=== PATIENT | female | born 1945 | race Caucasian/White ===

== ENCOUNTER → 2016-10-06 | Outpatient (CLI) | payer MEDICARE, OTHER ==
--- NOTE | 2016-10-07 13:41 | MM ---
Reason for exam: screening (asymptomatic). Last mammogram was performed 1 year and 1 month ago. History: Patient is postmenopausal and is nulliparous. Family history of breast cancer in cousin. Took estrogen for 5 years beginning at age 49. Physical Findings: A clinical breast exam by your physician is recommended on an annual basis and results should be correlated with mammographic findings. MG 3D Screening Mammo W/Cad Bilateral CC and MLO view(s) were taken. Prior study comparison: September 20, 2015, bilateral MG 3d screening mammo w/cad. October 11, 2013, bilateral digital screening mammo w/CAD. August 04, 2012, bilateral digital screening mammo w/CAD. There are scattered fibroglandular densities. No significant changes when compared with prior studies. ASSESSMENT: Negative, BI-RAD 1 RECOMMENDATION: Routine screening mammogram of both breasts in 1 year.
== END | disposition home or self-care (01) ==
LOC: RADMAMWWP 09:05
PROVIDERS: ATTEND Internal Medicine
DX: Z12.31 Encounter for screening mammogram for malignant neoplasm of breast (principal)
CPT/HCPCS: 77063; G0202

== ENCOUNTER 2017-02-19 17:51 | Inpatient (IN) | payer MEDICARE, OTHER ==
[2017-02-19 18:26] LABS: Glucose,Whole Blood 119 mg/dL (75-99)
[2017-02-19] MEDS ORDERED: ACETAMINOPHEN TAB 325 MG TAB PO PRN (18:28)
[2017-02-19] MEDS ORDERED: ONDANSETRON 4 MG/2 ML VIAL IVP PRN (18:28)
[2017-02-19] MEDS ORDERED: HEPARIN SODIUM,PORCINE 5,000 UNIT/ML 1 ML VIAL IV PRN (18:47)
[2017-02-19] MEDS ORDERED: HEPARIN SODIUM,PORCINE 5,000 UNIT/ML 1 ML VIAL IV ONE (18:47)
[2017-02-19] MEDS ORDERED: HEPARIN SODIUM,PORCINE/D5W PMX 25,000 UNIT in DEXTROSE/WATER 1 500ML.BAG IV SCH (19:00)
[2017-02-19 20:46] LABS: Glucose,Whole Blood 136 mg/dL (75-99)
[2017-02-19] MEDS: INSULIN LISPRO (humaLOG) 300 UNIT/3 ML VIAL SQ SCH (20:57)
[2017-02-19 22:02] VITALS: BMI 32.7
[2017-02-20 06:05] LABS: Glucose,Whole Blood 119 mg/dL (75-99)
[2017-02-20] MEDS: INSULIN LISPRO (humaLOG) 300 UNIT/3 ML VIAL SQ SCH ×4 (06:36→22:45)
[2017-02-20] MEDS: ATORVASTATIN 20 MG TAB PO SCH (06:39)
[2017-02-20] MEDS: METOPROLOL SUCCINATE (ER) 100 MG TAB.ER.24H PO SCH (06:39)
[2017-02-20] MEDS: POTASSIUM CHLORIDE ER 20 MEQ TAB.ER PO SCH (06:39)
[2017-02-20] MEDS: amLODIPine 5 MG TAB PO SCH (06:39)
[2017-02-20] MEDS ORDERED: NITROGLYCERIN SL TABS 0.4 MG TAB SUBLINGUAL PRN (07:39)
[2017-02-20] MEDS ORDERED: ATORVASTATIN 80 MG TAB PO STA (07:39)
[2017-02-20] MEDS ORDERED: ALPRAZolam 0.5 MG TAB PO PRN (07:39)
[2017-02-20] MEDS ORDERED: ALPRAZolam 0.25 MG TAB PO PRN (07:39)
[2017-02-20] MEDS ORDERED: SODIUM CHLORIDE 0.9% 1,000 ML in EMPTY BAG 1 BAG IV ONE (07:39)
[2017-02-20] MEDS ORDERED: ASPIRIN 325 MG TAB PO STA (07:39)
--- NOTE | 2017-02-20 08:06 | P.HPIM ---
History of Present Illness Chief complaint: The patient is a 71-year-old female who presented to [facility] emergency center with shortness of breath and pain radiating up in her neck 2 days ago. History of present illness: The patient was found in the emergency room at [facility] to have supraventricular tachycardia with a rate of about 180 bpm. She was converted there with adenosin and was followed with serial enzymes and found to have subsequently elevated troponin values. She did have some posterior neck discomfort that was different than her usual cervical osteoarthritic pain which cleared with controlling her heart rate. She was seen there by cardiology and transferred here because of problems with their catheterization lab at the other hospital. Plans are for catheterization today here later this morning. Past medical history: Type 2 diabetes Hyperlipidemia Hypertension Degenerative joint disease diffuse Chronic kidney disease stage III Obesity Previous surgeries include bilateral carpal tunnel and bilateral shoulder surgeries with the last being approximately 2010. She has no history of myocardial infarction or stroke in the past. Medications: Furosemide 40 mg daily Metoprolol 100 mg daily Patient previously was on metformin 500 mg twice a day which has been on hold Losartan 50 mg daily although patient was not taking approximately 3 weeks prior to admission because she ran out Lovastatin 40 mg 2 tablets at bedtime Potassium chloride 20 mEq daily Amlodipine 5 mg extended release daily Ibuprofen 800 mg twice a day as needed for degenerative disc disease Ranitidine 150 mg twice a day Multiple vitamin daily. ALLERGIES: Zestril, hydrochlorothiazide, Xylocaine, Prevacid. Review of systems: Patient denies any visual problems or headaches. Presently no nausea or vomiting. No chest pain. Some shortness of breath with exertion. No unusual cough or fevers. No abdominal pain. No urinary or bowel symptoms. No hematochezia. No unusual leg edema. Family history is positive for coronary artery disease and diabetes. Social history Patient has no history of smoking. She is retired. There is no history of excessive alcohol usage. She lives locally in the area independently. Physical examination: Patient is easily aroused in bed. Alert and oriented. Vital signs temperature 97.9 with a pulse from 50 to up to 62 in sinus and regular. Respirations are 18 with blood pressure 147/71 and she is 95% saturated on room air. Head and neck exam unremarkable. Extraocular movements intact. Pupils equal and reactive. Lungs are clear to auscultation. Heart tones are regular without murmurs or rubs. Breast and pelvic exam deferred. Abdomen is soft and nontender. Extremities reveal no edema. She is alert and oriented. Cranial nerves intact. No focal weakness. Laboratory values: Blood sugar is 119. PTT is 32.9. Once again troponin values did increase from a normal baseline at 2 values greater than 1 at [facility]. EKGs show normal sinus bradycardia. No definite acute ischemic changes. Chest x-ray at the other hospital does not show any acute changes. Impressions: 1. Non-ST segment myocardial infarction likely in terms of the rapid heart rate , neck discomfort and elevated enzymes. 2. Episode of supraventricular tachycardia with heart rates up to 180 presentation. 3. Comorbidities and risk factors as stated above in the past medical history including type 2 diabetes, hypertension, hyperlipidemia 4. Other past medical problems including diffuse generative joint disease, chronic kidney disease, and obesity. Plans: Patient apparently scheduled for heart catheterization today per cardiology and further recommendations regarding treatment and workup pending those results as discussed with patient. Patient understands reason for the testing and risks versus benefits involved. Past Medical History Past Medical History: Diabetes Mellitus, GERD/Reflux, Hyperlipidemia, Hypertension, Musculoskeletal Disorder Additional Past Medical History / Comment(s): carpal tunnel, diverticulosis, chronic back pain, History of Any Multi-Drug Resistant Organisms: None Reported Past Surgical History: Orthopedic Surgery Additional Past Surgical History / Comment(s): WALKER carpal tunnel surgery, WALKER shoulder replacements, L rotator cuff repair, colonoscopy 2006 with polyp removal Past Anesthesia/Blood Transfusion Reactions: No Reported Reaction Past Psychological History: No Psychological Hx Reported Smoking Status: Never smoker - Past Family History Mother Family Medical History: Cancer Additional Family Medical History / Comment(s): Cervical Brother(s) Family Medical History: Cancer Additional Family Medical History / Comment(s): Colon Medications and Allergies Home Medications Medication Instructions Recorded Confirmed Type Felodipine ER [Plendil] 5 mg PO DAILY 02/19/17 02/19/17 History Furosemide [Lasix] 40 mg PO DAILY 02/19/17 02/19/17 History Ibuprofen [Motrin] 800 mg PO BID 02/19/17 02/19/17 History Lovastatin [Mevacor] 80 mg PO HS 02/19/17 02/19/17 History Metoprolol Tartrate [Lopressor] 100 mg PO HS 02/19/17 02/19/17 History Potassium Chloride [Klor-Con 20] 20 meq PO DAILY 02/19/17 02/19/17 History metFORMIN HCL [Glucophage] 500 mg PO BID 02/19/17 02/19/17 History Allergies Allergy/AdvReac Type Severity Reaction Status Date / Time hydrochlorothiazide Allergy Rash/Hives Verified 02/19/17 18:23 lidocaine Allergy Unknown Verified 02/19/17 18:23 Physical Exam Vitals: Vital Signs Temp Pulse Resp BP Pulse Ox 02/20/17 07:30 97.9 F 52 L 17 147/71 95 02/20/17 07:29 62 18 02/20/17 04:00 98.3 F 62 18 142/67 93 L 02/20/17 00:00 56 L 16 118/58 93 L 02/19/17 22:01 98.5 F 63 18 136/66 92 L 02/19/17 20:00 98.5 F 63 18 136/66 92 L 02/19/17 18:19 98.6 F 65 17 177/77 95 02/19/17 18:15 65 18 Intake and Output 02/19/17 02/20/17 02/20/17 22:59 06:59 14:59 Intake Total 233.124 Balance 233.124 Intake: IV 102 Heparin Sodium,Porcine/ 102 D5w Pmx 25,000 unit In Dextrose/Water 1 500ml. bag @ 12 UNITS/KG/HR 17. 64 mls/hr IV .Q24H [facility] Rx #:[id number] Intake, IV Titration 131.124 Amount Heparin Sodium,Porcine/ 131.124 D5w Pmx 25,000 unit In Dextrose/Water 1 500ml. bag @ 12 UNITS/KG/HR 17. 64 mls/hr IV .Q24H [facility] Rx #:[id number] Other: Voiding Method Toilet Toilet # Voids 2 Weight 73.5 kg 72.8 kg Results Labs: Abnormal Lab Results - Last 24 Hours (Table) 02/19/17 02/19/17 02/20/17 Range/Units 18:24 20:43 01:29 APTT 32.9 H (22.0-30.0) sec POC Glucose (mg/dL) 119 H 136 H (75-99) mg/dL 02/20/17 Range/Units 06:03 APTT (22.0-30.0) sec POC Glucose (mg/dL) 119 H (75-99) mg/dL Thrombosis Risk Factor Assmnt - Choose All That Apply Any of the Below Risk Factors Present?: No Other Risk Factors: Yes Each Risk Factor Represents 2 Points: Age 61-74 years Thrombosis Risk Factor Assessment Total Risk Factor Score: 2 Thrombosis Risk Factor Assessment Level: Low Risk
[2017-02-20] MEDS ORDERED: SODIUM CHLORIDE 0.9% 500 ML IV ONE (08:20)
[2017-02-20] MEDS ORDERED: MIDAZOLAM 2 MG/2 ML VIAL IV ONE (08:22)
[2017-02-20] MEDS ORDERED: diphenhydrAMINE 50 MG/ML 1 ML VIAL IVP ONE (08:22)
[2017-02-20] MEDS ORDERED: CHLOROPROCAINE 3% 30 MG/ML 20 ML VIAL SQ ONE (08:25)
[2017-02-20] MEDS ORDERED: LIDOCAINE 2% INJ 20 MG/ML SQ ONE (08:25)
[2017-02-20] MEDS ORDERED: CHLOROPROCAINE 3% 30 MG/ML 20 ML VIAL MISCELLANE ONE (08:30)
[2017-02-20] MEDS ORDERED: amLODIPine 5 MG TAB PO ONE (08:44)
[2017-02-20] MEDS ORDERED: NITROGLYCERIN OINT 1 INCH/GM PACKET TOPICAL ONE (08:45)
[2017-02-20] MEDS ORDERED: RX INFO: IV CONTRAST WAS GIVEN 1 EACH MISC MISCELLANE PRN (08:54)
[2017-02-20] MEDS ORDERED: IOHEXOL 350 MG/ML 125ML BOTTLE INJ ONE (08:57)
[2017-02-20] MEDS ORDERED: CLOPIDOGREL 75 MG TAB PO SCH (09:00)
[2017-02-20] MEDS ORDERED: hydrALAZINE HCL 20 MG/ML 1 ML VIAL IV ONE (09:04)
--- NOTE | 2017-02-20 09:23 | CC ---
CARDIAC CATHETERIZATION NOTE INDICATIONS: Non-ST segment elevation AR. This is a 71-year-old lady who was admitted to [facility] with SVT and ruled in for myocardial infarction. She was evaluated by my associate Dr. Jean Baptiste who asked me to do this cardiac catheterization for him. I met the patient prior to cath. I explained to her risks, benefits and alternatives. She understood and accepted. Patient has renal insufficiency and is ( ) for contrast induced nephropathy. PROCEDURE NOTE: After obtaining informed consent, left heart catheterization and coronary angiogram are performed via the right femoral artery using standard Rosio catheters. Patient tolerated the procedure well without any obvious immediate complications. She received moderate conscious sedation. Total sedation time was 18 minutes. FINDINGS: 1. HEMODYNAMICS: Left ventricular end-diastolic pressure is 20 to 22 mm. There is no significant gradient across the ( ). 2. LEFT VENTRICULOGRAM: Left ventriculogram is not performed. 3. ANGIOGRAPHIC DATA: LEFT MAIN CORONARY ARTERY: Left main coronary artery appears somewhat calcified , but is free of significant stenosis. It divides into left anterior descending coronary artery and circumflex coronary artery. There is mild diffuse disease both in the LAD and circumflex. LAD gives off large caliber diagonal branches, which shows 50% to 60% stenosis. Circumflex coronary artery gives off large caliber OM branches, which are diffusely diseased at their worst they are 70% to 80% stenosed. Right coronary artery is a large codominant system that shows a long segment of 70% to 80% stenosis in its mid to distal portion. There is also disease in the proximal and the distal parts of RCA. CONCLUSIONS: 1. Three-vessel coronary artery disease as described above. 2. Elevated left ventricular end-diastolic pressures. PLAN: I am going to review the angiographic data with Dr. Yang and will decide on whether to proceed with angioplasty or treat with medical therapy. ALL
--- NOTE | 2017-02-20 09:28 | PN ---
Following her cardiac catheterization, I reviewed angiographic data with Dr. Yang, the on-call inventory control clerk. Given the diffuse nature of disease and the fact that she did not have any chest pain and the elevated troponin was the result of supply-demand mismatch, we decided to manage her with optimal medical therapy with aspirin, Plavix, nitrates, beta blockers and statins at this time. She will follow up with Dr. Krissy Jean Baptiste and if she has symptoms of angina, will then undergo high risk angioplasty of [place] circumflex coronary artery and right coronary artery. ALL
[2017-02-20] MEDS: FUROSEMIDE 40 MG TAB PO SCH (10:37)
[2017-02-20] MEDS: ISOSORBIDE MONONITRATE ER 30 MG TAB.ER.24H PO SCH (10:38)
[2017-02-20] MEDS: SODIUM CHLORIDE 0.9% 1,000 ML IV SCH (10:41)
[2017-02-20 12:13] LABS: Basophils % (A) 1 %; CH 29.9; CHCM 31.5; Eosinophils # (A) 0.2 k/uL (0-0.7); Eosinophils % (A) 4 %; HCT 34.9 % (34.0-46.0); HDW 2.42; HGB 11.1 gm/dL (11.4-16.0); Hypochromasia Slight; Luc # (Auto) 0.16; Luc % (Auto) 3; Lymphocytes # (A) 1.9 k/uL (1.0-4.8); Lymphocytes % (A) 32 %; MCH 30.3 pg (25.0-35.0); MCHC 31.9 g/dL (31.0-37.0); MCV 95.1 fL (80.0-100.0); Mean Platelet Volume 9.6; Monocytes # (A) 0.4 k/uL (0-1.0); Monocytes % (A) 7 %; Neutrophils # (A) 3.3 k/uL (1.3-7.7); Neutrophils % (A) 54 %; RBC 3.67 m/uL (3.80-5.40); RDW 13.6 % (11.5-15.5); WBC 6.1 k/uL (3.8-10.6); WBC (Perox) 6.34
[2017-02-20 12:36] LABS: Glucose,Whole Blood 161 mg/dL (75-99)
[2017-02-20 17:06] LABS: Glucose,Whole Blood 137 mg/dL (75-99)
[2017-02-20 20:30] LABS: Glucose,Whole Blood 130 mg/dL (75-99)
[2017-02-21 05:54] LABS: Glucose,Whole Blood 115 mg/dL (75-99)
[2017-02-21] MEDS: SODIUM CHLORIDE 0.9% 1,000 ML IV SCH (05:55)
[2017-02-21 06:06] LABS: Basophils % (A) 0 %; CHCM 33.2; Eosinophils # (A) 0.2 k/uL (0-0.7); Eosinophils % (A) 4 %; HCT 32.3 % (34.0-46.0); HDW 2.46; HGB 10.5 gm/dL (11.4-16.0); Luc # (Auto) 0.09; Luc % (Auto) 2; Lymphocytes # (A) 1.4 k/uL (1.0-4.8); Lymphocytes % (A) 22 %; MCH 30.5 pg (25.0-35.0); MCHC 32.5 g/dL (31.0-37.0); MCV 93.8 fL (80.0-100.0); Mean Platelet Volume 8.3; Monocytes # (A) 0.3 k/uL (0-1.0); Monocytes % (A) 5 %; Neutrophils # (A) 4.2 k/uL (1.3-7.7); Neutrophils % (A) 68 %; RBC 3.45 m/uL (3.80-5.40); WBC 6.1 k/uL (3.8-10.6); WBC (Perox) 6.61
[2017-02-21] MEDS: INSULIN LISPRO (humaLOG) 300 UNIT/3 ML VIAL SQ SCH ×2 (06:39→12:09)
[2017-02-21] MEDS ORDERED: CLOPIDOGREL 75 MG TAB PO SCH (09:00)
[2017-02-21 09:08] VITALS: TEMP 98.2
[2017-02-21] MEDS: amLODIPine 5 MG TAB PO SCH (09:08)
[2017-02-21] MEDS: ATORVASTATIN 20 MG TAB PO SCH (09:08)
[2017-02-21] MEDS: ISOSORBIDE MONONITRATE ER 30 MG TAB.ER.24H PO SCH (09:09)
[2017-02-21] MEDS: FUROSEMIDE 40 MG TAB PO SCH (09:09)
[2017-02-21] MEDS: METOPROLOL SUCCINATE (ER) 100 MG TAB.ER.24H PO SCH (09:09)
[2017-02-21] MEDS: POTASSIUM CHLORIDE ER 20 MEQ TAB.ER PO SCH (09:09)
[2017-02-21 09:57] LABS: Glucose,Whole Blood 183 mg/dL (75-99)
--- NOTE | 2017-02-21 10:41 | P.PN ---
Progress Note - Text The patient is a 71-year-old female who presented initially at [facility] and transferred here for cardiac catheterization. Please refer to history and physical for details. She was found to have elevated troponin values at [facility] and the laborer filter plant was nonoperable there. Apparently patient has been found on catheterization to have some areas of stenoses. Details and cardiology notes are pending. It has presently been elected to treat her medically and without angioplastic intervention at this time as discussed with Dr Riley. Patient had rate related ischemia as she presented to [facility] with a supraventricular tachycardia of 180. She has not had any further chest discomfort or unusual shortness of breath or symptoms. Clinically today she is sitting up in bed. Vital signs reveal temperature 98.2 with a pulse of 72 and respirations 12. Blood pressure 141/69 and she is 97% saturated on room air. Lung and heart examination is clear and regular. Abdomen nontender. No unusual edema. She is alert and oriented. Cranial nerves intact. No focal deficits or weakness. Laboratory results: White count 6.1 with a hemoglobin 10.5 and a platelet count of 153. Blood sugars range from 115 to his high as 183. Impressions and plans: Overall this 71-year-old female had a nonST segment elevated myocardial infarction with elevated troponins related to supraventricular tachycardia and a mismatch of supply versus demand of blood flow and oxygen to the heart. She does have multiple risk factors. Patient will likely continue her home medications. She will continue on aspirin and Plavix and Isorbid mononitrate will be added at 30 mg daily. These 2 medications will be sent to her [facility] in [place] through my electronic medical record. Patient will continue her previous home medications which include her Lasix 40 mg her beta figueroa metoprolol or Lopressor along with her previous home medication that included statin and calcium channel figueroa. Also to resume her metformin for her diabetes. Patient has an appointment to follow-up with me in early March. She has been instructed to follow up with cardiology this month. She is to call office if any concerns or problems. Return to emergency room if any severe chest discomfort or shortness of breath. Discharge today if okay with cardiology. If any questions or concerns or problems Dr. Dami Beckett is environmental health inspector for me this weekend. Also discussed that cardiology may perform further workup as outpatient for her previous supraventricular tachycardia.
[2017-02-21 11:30] VITALS: BP 135/74; PULSE 67; RESP 16
--- NOTE | 2017-02-21 11:33 | P.PN ---
Subjective Principal diagnosis: Chest pain This is a 71-year-old female admitted to [facility] with a tachycardia, ruled in for non-Q-wave myocardial infarction. She was seen in consultation there by Dr. VC Jean Baptiste, transferred here and underwent cardiac catheterization by Dr. Rawls. Cardiac catheterization revealed three- vessel coronary artery disease and maximal medical therapy was advised. Films had been reviewed by Dr. Chavira. She was seen and examined this morning, denies any chest pain or difficulty in breathing. She has been up ambulating without any difficulty. Blood pressure this morning 134/70 with a heart rate in the 60s. Objective - Vital Signs Vital signs: Vital Signs Temp 98.2 F 02/21/17 09:07 Pulse 72 02/21/17 09:07 Resp 12 02/21/17 09:07 BP 141/69 02/21/17 09:07 Pulse Ox 97 02/21/17 09:07 Intake & Output 02/20/17 02/21/17 02/21/17 18:59 06:59 18:59 Intake Total 1473.2 Balance 1473.2 Weight 74.3 kg Intake: IV 188.2 Heparin Sodium,Porcine/ 88.2 D5w Pmx 25,000 unit In Dextrose/Water 1 500ml. bag @ 12 UNITS/KG/HR 17. 64 mls/hr IV .Q24H [facility] Rx #:[id number] Intake, IV Titration 895 Amount Sodium Chloride 0.9% 1, 750 000 ml @ 75 mls/hr IV . [id number] [facility] Rx#:[id number] Sodium Chloride 0.9% 1, 145 000 ml In Empty Bag 1 bag @ 1 ML/KG/HR 72.8 mls/hr IV .[id number] [facility] Rx#: [id number] Oral 390 Other: Voiding Method Toilet Toilet Toilet # Voids 2 1 - Exam PHYSICAL EXAMINATION: HEENT: Head is atraumatic, normocephalic. Pupils equal, round. Neck is supple. There is no elevated jugular venous pressure. HEART EXAMINATION: Heart S1, S2 normal. No murmur or gallop heard. CHEST EXAMINATION: Lungs are clear to auscultation and precussion. No chest wall tenderness is noted on palpation or with deep breathing. ABDOMEN: [ Soft, nontender. Bowel sounds are heard. No organomegaly noted]. Right groin soft, no evidence of any hematoma. EXTREMITIES:[ 2+ peripheral pulses with no evidence of peripheral edema and no calf tenderness noted]. NEUROLOGIC [patient is awake, alert and oriented -3.] . - Labs CBC & Chem 7: 02/21/17 05:41 Labs: Abnormal Lab Results - Last 24 Hours (Table) 02/20/17 02/20/17 02/20/17 Range/Units 01:29 12:23 17:00 RBC 3.67 L (3.80-5.40) m/uL Hgb 11.1 L (11.4-16.0) gm/dL Hct (34.0-46.0) % POC Glucose (mg/dL) 161 H 137 H (75-99) mg/dL 02/20/17 02/21/17 02/21/17 Range/Units 20:29 05:41 05:52 RBC 3.45 L (3.80-5.40) m/uL Hgb 10.5 L (11.4-16.0) gm/dL Hct 32.3 L (34.0-46.0) % POC Glucose (mg/dL) 130 H 115 H (75-99) mg/dL 02/21/17 Range/Units 09:44 RBC (3.80-5.40) m/uL Hgb (11.4-16.0) gm/dL Hct (34.0-46.0) % POC Glucose (mg/dL) 183 H (75-99) mg/dL Assessment and Plan (1) NSTEMI (non-ST elevated myocardial infarction) Status: Acute (2) S/P cardiac cath Status: Acute (3) Triple vessel coronary artery disease Status: Acute (4) Diabetes Status: Acute (5) HTN (hypertension) Status: Acute (6) Hyperlipemia Status: Acute Plan: From cardiology's perspective, patient may be able to be discharged home today. We'll make her a follow-up appointment to see Crystal the cardiology nurse practitioner in the office next week. Following that she will see Dr. VC Jean Baptiste in the office down the road. DNP note has been reviewed, I agree with a documented findings and plan of care. Patient was seen and examined.
[2017-02-21 12:25] LABS: Glucose,Whole Blood 102 mg/dL (75-99)
[2017-02-22 11:49] LABS: Hemoglobin A1C 6.5 % (4.2-6.1)
== END 2017-02-21 12:53 | disposition home or self-care (01) | DRG 281 ==
LOC: CATHCVL 17:51 → 6SEL 17:53
PROVIDERS: ADMIT Internal Medicine; ATTEND Internal Medicine
PROC: 4A023N7 Measurement of Cardiac Sampling and Pressure, Left Heart, Percutaneous Approach (ICD-10-PCS; principal; 2017-02-20 09:00)
PROC: B2111ZZ Fluoroscopy of Multiple Coronary Arteries using Low Osmolar Contrast (ICD-10-PCS; principal; 2017-02-20 09:00)
DX: I21.4 Non-ST elevation (NSTEMI) myocardial infarction (principal); I47.1 Supraventricular tachycardia; E11.22 Type 2 diabetes mellitus with diabetic chronic kidney disease; N18.3 Chronic kidney disease, stage 3 (moderate); I12.9 Hypertensive chronic kidney disease with stage 1 through stage 4 chronic kidney disease, or unspecified chronic kidney disease; E78.5 Hyperlipidemia, unspecified; I25.10 Atherosclerotic heart disease of native coronary artery without angina pectoris; M19.91 Primary osteoarthritis, unspecified site; E66.9 Obesity, unspecified; K21.9 Gastro-esophageal reflux disease without esophagitis; G89.29 Other chronic pain; M54.9 Dorsalgia, unspecified; K57.90 Diverticulosis of intestine, part unspecified, without perforation or abscess without bleeding; Z79.84 Long term (current) use of oral hypoglycemic drugs; Z79.899 Other long term (current) drug therapy; Z96.612 Presence of left artificial shoulder joint; Z96.611 Presence of right artificial shoulder joint; Z86.010 Personal history of colon polyps
CPT/HCPCS: 83036; 85025; 85730; 93458

== ENCOUNTER 2017-03-12 14:33 | Inpatient (IN) | payer MEDICARE, OTHER ==
[2017-03-12] MEDS ORDERED: SODIUM CHLORIDE 0.9% 1,000 ML IV STA (14:42)
[2017-03-12] MEDS ORDERED: SODIUM CHLORIDE 0.9% 500 ML IV STA (14:42)
--- NOTE | 2017-03-12 14:51 | ED ---
General Adult HPI - General Chief complaint: Arrhythmia/Palpitations Stated complaint: ELEVATED HEART RATE Time Seen by Provider: 03/12/17 14:42 Source: patient, RN notes reviewed, old records reviewed Mode of arrival: EMS Limitations: no limitations - History of Present Illness Initial comments: This is a 71-year-old female here for evaluation. The patient does reevaluation regarding elevated heart rate weakness near-syncope. Patient has recent diagnosis of atrial fibrillation, history of heart disease. Patient states she had a similar episode when she was diagnosed a few weeks ago. Currently patient feels much better after arrival by EMS. Denies chest pain. Denies significant shortness of breath. She states she is taking all medications as prescribed including but denies drugs or alcohol. - Related Data Home Medications Medication Instructions Recorded Confirmed Felodipine ER [Plendil] 5 mg PO DAILY 02/19/17 03/12/17 Furosemide [Lasix] 40 mg PO DAILY 02/19/17 03/12/17 Ibuprofen [Motrin] 800 mg PO BID 02/19/17 03/12/17 Lovastatin [Mevacor] 80 mg PO HS 02/19/17 03/12/17 Metoprolol Tartrate [Lopressor] 100 mg PO HS 02/19/17 03/12/17 Potassium Chloride [Klor-Con 20] 20 meq PO DAILY 02/19/17 03/12/17 metFORMIN HCL [Glucophage] 500 mg PO BID 02/19/17 03/12/17 Allergies Allergy/AdvReac Type Severity Reaction Status Date / Time hydrochlorothiazide Allergy Rash/Hives Verified 03/12/17 15:16 lidocaine Allergy Unknown Verified 03/12/17 15:16 Review of Systems ROS Statement: Those systems with pertinent positive or pertinent negative responses have been documented in the HPI. ROS Other: All systems not noted in ROS Statement are negative. Past Medical History Past Medical History: Atrial Fibrillation, Diabetes Mellitus, GERD/Reflux, Hyperlipidemia, Hypertension, Musculoskeletal Disorder Additional Past Medical History / Comment(s): carpal tunnel, diverticulosis, chronic back pain, History of Any Multi-Drug Resistant Organisms: None Reported Past Surgical History: Orthopedic Surgery Additional Past Surgical History / Comment(s): WALKER carpal tunnel surgery, WALKER shoulder replacements, L rotator cuff repair, colonoscopy 2006 with polyp removal Past Anesthesia/Blood Transfusion Reactions: No Reported Reaction Past Psychological History: No Psychological Hx Reported Smoking Status: Never smoker Past Alcohol Use History: None Reported Past Drug Use History: None Reported - Past Family History Mother Family Medical History: Cancer Additional Family Medical History / Comment(s): Cervical Brother(s) Family Medical History: Cancer Additional Family Medical History / Comment(s): Colon General Exam Limitations: no limitations General appearance: alert, in no apparent distress Head exam: Present: atraumatic, normocephalic, normal inspection Eye exam: Present: normal appearance, PERRL, EOMI. Absent: scleral icterus, conjunctival injection, periorbital swelling ENT exam: Present: normal exam, mucous membranes moist Neck exam: Present: normal inspection. Absent: tenderness, meningismus, lymphadenopathy Respiratory exam: Present: normal lung sounds bilaterally. Absent: respiratory distress, wheezes, rales, rhonchi, stridor Cardiovascular Exam: Present: normal rhythm, tachycardia, normal heart sounds. Absent: systolic murmur, diastolic murmur, rubs, gallop, clicks GI/Abdominal exam: Present: soft, normal bowel sounds. Absent: distended, tenderness, guarding, rebound, rigid Extremities exam: Present: normal inspection, full ROM, normal capillary refill. Absent: tenderness, pedal edema, joint swelling, calf tenderness Back exam: Present: normal inspection Neurological exam: Present: alert, oriented X3, CN II-XII intact Psychiatric exam: Present: normal affect, normal mood Skin exam: Present: warm, dry, intact, normal color. Absent: rash Course Vital Signs 03/12/17 14:46 Temperature 97.9 F Pulse Rate 95 Respiratory 20 Rate Blood Pressure 140/77 O2 Sat by Pulse 94 L Oximetry - Reevaluation(s) Reevaluation #1: 03/12/17 14:50 Pre- Hospital telemetry does show a CT after conversion with adenosine atrial fibrillation Reevaluation #2: 03/12/17 15:28 Patient had a distended strapped into the 80s does look normal sinus rhythm EKG Findings - EKG Comments: EKG Findings:: EKG shows sinus tachycardia rate 114, [place] 170, QRS 82, QTc 465 Medical Decision Making - Medical Decision Making 71 female year for various of near syncopal event severe elevated heart rate feels like to pass out. Patient was SVT to A. fib the sinus tach now a normal sinus rhythm. Patient be admitted for cardiac evaluation. Patient has severe history of heart disease, patient currently is on anticoagulation - Lab Data Result diagrams: 03/12/17 15:03 Lab Results 03/12/17 Range/Units 15:03 WBC 5.3 (3.8-10.6) k/uL RBC 3.62 L (3.80-5.40) m/uL Hgb 11.1 L (11.4-16.0) gm/dL Hct 33.0 L (34.0-46.0) % MCV 91.2 (80.0-100.0) fL MCH 30.7 (25.0-35.0) pg MCHC 33.6 (31.0-37.0) g/dL RDW 14.1 (11.5-15.5) % Plt Count 159 (150-450) k/uL Neutrophils % 74 % Lymphocytes % 16 % Monocytes % 5 % Eosinophils % 4 % Basophils % 1 % Neutrophils # 3.9 (1.3-7.7) k/uL Lymphocytes # 0.8 L (1.0-4.8) k/uL Monocytes # 0.3 (0-1.0) k/uL Eosinophils # 0.2 (0-0.7) k/uL Basophils # 0.0 (0-0.2) k/uL Critical Care Time Critical Care Time: Yes Total Critical Care Time: 31 Disposition Clinical Impression: S/P cardiac cath, Triple vessel coronary artery disease, Atrial fibrillation, SVT (supraventricular tachycardia) Disposition: ADMITTED IP TO THIS [facility] Condition: Fair Referrals: Avery Ulloa MD [Primary Care Provider] - 1-2 days
[2017-03-12] MEDS: DILTIAZEM 5 MG/ML 5 ML VIAL IVP STA ×2 (14:53→16:43)
[2017-03-12 15:19] LABS: Basophils % (A) 1 %; CH 31.3; CHCM 34.5; Eosinophils # (A) 0.2 k/uL (0-0.7); Eosinophils % (A) 4 %; HDW 2.71; HGB 11.1 gm/dL (11.4-16.0); Luc # (Auto) 0.09; Luc % (Auto) 2; Lymphocytes # (A) 0.8 k/uL (1.0-4.8); Lymphocytes % (A) 16 %; MCH 30.7 pg (25.0-35.0); MCHC 33.6 g/dL (31.0-37.0); MCV 91.2 fL (80.0-100.0); Mean Platelet Volume 8.6; Monocytes # (A) 0.3 k/uL (0-1.0); Monocytes % (A) 5 %; Neutrophils # (A) 3.9 k/uL (1.3-7.7); Neutrophils % (A) 74 %; RBC 3.62 m/uL (3.80-5.40); RDW 14.1 % (11.5-15.5); WBC 5.3 k/uL (3.8-10.6); WBC (Perox) 5.63
[2017-03-12] MEDS ORDERED: ASPIRIN 81 MG CHEW PO STA (15:27)
[2017-03-12] MEDS ORDERED: NITROGLYCERIN SL TABS 0.4 MG TAB SUBLINGUAL PRN (15:27)
[2017-03-12 15:29] LABS: Calcium 9.6 mg/dL (8.4-10.2); Magnesium 1.8 mg/dL (1.6-2.3); Phosphorous 3.3 mg/dL (2.5-4.5); Potassium 3.8 mmol/L (3.5-5.1); Prothrombin Time 10.3 sec (9.0-12.0); Total Bilirubin 0.4 mg/dL (0.2-1.3); Total Protein 7.6 g/dL (6.3-8.2)
[2017-03-12 15:38] LABS: Partial Thromboplastin Time 20.6 sec (22.0-30.0)
[2017-03-12 15:42] LABS: Creatine Kinase 60 U/L (30-135)
[2017-03-12 15:55] LABS: Creatine Kinase MB 0.7 ng/mL (0.0-2.4); Troponin I <0.012 ng/mL (0.000-0.034)
--- NOTE | 2017-03-12 17:34 | P.HPIM ---
History of Present Illness Chief complaint: Weakness and palpitations. History of present illness: The patient is a 71-year-old female who came into the emergency room earlier today with weakness associated with palpitations of a rapid heart rate and near syncopal type episode. She was mildly short of breath but no unusual chest pain. No fever or chills associated with this. Apparently patient was just sitting in her home ready to eat an apple when the symptoms started. Subsequently the EMS arrived and an transport administered adenosine with conversion of her heart rhythm and some improvement in her symptomatology. Past medical history: Patient was admitted here last month with initially some similar episode and developed elevated troponin values consistent with a non-ST elevated myocardial infarction at that time. Patient underwent cardiac catheterization also at that time which revealed some triple vessel disease changes and elevated LV end-diastolic pressures. Upon further review it was elected to continue with the medical treatment. Patient also has type 2 diabetes Hyperlipidemia Hypertension Degenerative joint disease diffuse Obesity And chronic kidney disease stage III. Home medications: Metoprolol tartrate 100 mg at at bedtime Mevacor 80 mg at at bedtime Metformin 500 mg twice a day Klor-Con 20 mEq daily Ibuprofen 800 mg twice a day as needed for arthritic discomfort Lasix 40 mg daily Felodipine ER 5 mg daily. ALLERGIES: Rash/hives with hydrochlorothiazide. Unknown reaction with lidocaine in the past. Review of systems: Patient denies any unusual headache. No nausea or vomiting. No visual changes. No unusual shortness of breath or chest pain. No bowel or urinary difficulties. No unusual leg edema. No neurological symptoms. Family history: Positive for coronary artery disease and diabetes Social history: No previous smoking history. Patient is retired. There is no history of any excessive alcohol usage and she lives locally and independently in the [facility]. Physical examination: Patient is sitting up in bed. Alert and oriented. Vital signs reveal temperature 98.3 with a pulse of 79 and respirations 18. Blood pressure 141/81 and she is 98% saturated on 2 L. Head is atraumatic. Extraocular movements intact. Neck is supple. No adenopathy or thyromegaly detected. Breast and pelvic exam deferred. Lungs clear to auscultation. Heart tones at this time are regular without murmur or rubs appreciated. Abdomen is obese but soft and nontender. No organomegaly. No unusual leg edema. No calf tenderness. She is alert and oriented. No cranial nerve deficits. No focal weakness noted. Laboratory White count 5.3 with a hemoglobin 11.1 and a platelet count of 159 INR 1.0 with a PTT of 20.6 BUN is 30 with a creatinine 1.2 giving her a GFR of 44 Sodium was 140 with potassium 3.8. CO2 content 23. A random blood sugar 146. Liver function tests unremarkable. Albumin normal at 4.5. TSH normal at 1.7. Troponin less than 0.012 and CK normal at 60. Impressions: 1. Supraventricular tachycardia with rapid ventricular response and presyncopal episode, rate related. 2. Underlying coronary artery disease with recent catheterization last month. History of non-ST segment elevated myocardial infarction at that time. 3. Type 2 diabetes along with other comorbidities as stated in the past medical history above. Plans: Discussed with patient. Discussed with the emergency room physician. She will be monitored. Consult for cardiology. Cardiac enzymes to be done. We'll continue now with aspirin daily. Home medications to be reviewed and continued. Although will hold metformin at this time pending further cardiology evaluation. Past Medical History Past Medical History: Atrial Fibrillation, Diabetes Mellitus, GERD/Reflux, Hyperlipidemia, Hypertension, Musculoskeletal Disorder Additional Past Medical History / Comment(s): carpal tunnel, diverticulosis, chronic back pain, History of Any Multi-Drug Resistant Organisms: None Reported Past Surgical History: Orthopedic Surgery Additional Past Surgical History / Comment(s): WALKER carpal tunnel surgery, WALKER shoulder replacements, L rotator cuff repair, colonoscopy 2006 with polyp removal Past Anesthesia/Blood Transfusion Reactions: No Reported Reaction Past Psychological History: No Psychological Hx Reported Smoking Status: Never smoker Past Alcohol Use History: None Reported Past Drug Use History: None Reported - Past Family History Mother Family Medical History: Cancer Additional Family Medical History / Comment(s): Cervical Brother(s) Family Medical History: Cancer Additional Family Medical History / Comment(s): Colon Medications and Allergies Home Medications Medication Instructions Recorded Confirmed Type Felodipine ER [Plendil] 5 mg PO DAILY 02/19/17 03/12/17 History Furosemide [Lasix] 40 mg PO DAILY 02/19/17 03/12/17 History Ibuprofen [Motrin] 800 mg PO BID 02/19/17 03/12/17 History Lovastatin [Mevacor] 80 mg PO HS 08/17/17 09/07/17 History Metoprolol Tartrate [Lopressor] 100 mg PO HS 02/19/17 03/12/17 History Potassium Chloride [Klor-Con 20] 20 meq PO DAILY 02/19/17 03/12/17 History metFORMIN HCL [Glucophage] 500 mg PO BID 02/19/17 03/12/17 History Allergies Allergy/AdvReac Type Severity Reaction Status Date / Time hydrochlorothiazide Allergy Rash/Hives Verified 03/12/17 15:16 lidocaine Allergy Unknown Verified 03/12/17 15:16 Physical Exam Vitals: Vital Signs Temp Pulse Resp BP Pulse Ox 03/12/17 16:50 98.3 F 79 18 141/81 98 03/12/17 16:46 98.3 F 79 18 141/81 98 03/12/17 15:27 84 03/12/17 14:46 97.9 F 95 20 140/77 94 L Intake and Output 03/12/17 03/12/17 03/12/17 06:59 14:59 22:59 Other: Weight 74.389 kg Patient Weight 03/13/17 06:59 Weight 74.389 kg Results CBC & Chem 7: 03/12/17 15:03 03/12/17 15:03 Labs: Abnormal Lab Results - Last 24 Hours (Table) 03/12/17 03/12/17 03/12/17 Range/Units 15:03 15:03 15:03 RBC 3.62 L (3.80-5.40) m/uL Hgb 11.1 L (11.4-16.0) gm/dL Hct 33.0 L (34.0-46.0) % Lymphocytes # 0.8 L (1.0-4.8) k/uL APTT 20.6 L (22.0-30.0) sec BUN 30 H (7-17) mg/dL Creatinine 1.20 H (0.52-1.04) mg/dL Glucose 146 H (74-99) mg/dL
[2017-03-12] MEDS: ATORVASTATIN 20 MG TAB PO SCH (20:38)
[2017-03-12 20:57] LABS: Glucose,Whole Blood 128 mg/dL (75-99)
[2017-03-12] MEDS ORDERED: METOPROLOL TARTRATE 50 MG TAB PO SCH (21:00)
[2017-03-12 21:29] LABS: Troponin I 0.197 ng/mL (0.000-0.034)
[2017-03-12] MEDS: INSULIN LISPRO (humaLOG) 300 UNIT/3 ML VIAL SQ SCH (21:49)
[2017-03-13 03:13] LABS: Cholesterol 128 mg/dL (<200); HDL Cholesterol 27 mg/dL (40-60)
[2017-03-13 04:08] LABS: Troponin I 0.226 ng/mL (0.000-0.034)
[2017-03-13 05:55] LABS: Glucose,Whole Blood 107 mg/dL (75-99)
[2017-03-13] MEDS: INSULIN LISPRO (humaLOG) 300 UNIT/3 ML VIAL SQ SCH ×4 (06:04→21:14)
--- NOTE | 2017-03-13 07:49 | P.PN ---
Progress Note - Text The patient is a 71-year-old female who came into the emergency room yesterday and found to have a supraventricular tachycardia and associated with weakness and palpitations. Patient did convert with adenosine and has remained in sinus rhythm. She denies any chest pain. She has been monitored throughout the night without incident. Vital signs reveal temperature 98.6 with a pulse of 60 and respirations 18. Blood pressure is 143/63 and she is 95% saturated on room air. Lung and heart examination is clear and regular. Abdomen nontender. No unusual edema. No focal neurological changes. Labs Troponins have increased from 0.012 up 2.2-6. A cholesterol values are generally favorable with an LDL cholesterol of 67 although total cholesterol is 128 and HDL is low at 27. TSH normal at 1.7. Impressions and plans: Overall this 71-year-old female who has had recurrent supraventricular tachycardia. Once again enzymes have increased. Patient did have cardiac catheterization on her last admission in February. Cardiology consult is pending and further evaluation and recommendations pending their input. Patient is nothing by mouth for now.
[2017-03-13] MEDS: FUROSEMIDE 40 MG TAB PO SCH (08:53)
[2017-03-13] MEDS: POTASSIUM CHLORIDE ER 20 MEQ TAB.ER PO SCH (08:53)
[2017-03-13] MEDS: ASPIRIN 325 MG TAB PO SCH (08:53)
[2017-03-13] MEDS: amLODIPine 5 MG TAB PO SCH (08:54)
[2017-03-13 09:38] LABS: Hemoglobin A1C 6.7 % (4.2-6.1)
[2017-03-13] MEDS ORDERED: AMIODARONE 200 MG TAB PO SCH (11:05)
--- NOTE | 2017-03-13 11:10 | P.CRDCN ---
History of Present Illness Consult date: 03/13/17 Reason for Consult (text): SVT with non-ST segment elevation MA History of present illness: 71-year-old lady that was recently admitted to [facility] with paroxysmal SVT and ruled in for myocardial infarction. I performed a cardiac catheterization on her that revealed three-vessel coronary artery disease for which she was advised medical therapy. She was supposed to be followed up in our office yesterday but had sustained palpitations came back to the ER and was found to be in SVT she had mild troponin elevation. She converted back to sinus rhythm and she is in sinus rhythm this morning. I'm going to start the patient on amiodarone and discuss with loader unloader about SVT ablation the elevated troponin is related to supply demand mismatch Review of Systems Constitutional: Denies chills. Denies fever. Eyes: Denies blurred vision. Denies pain. Ears, nose, mouth and throat: Denies headache. Denies sore throat. Cardiovascular: Denies chest pain. Denies shortness of breath. Sustained palpitations Respiratory: Denies cough. Gastrointestinal: Denies abdominal pain. Denies diarrhea. Denies nausea. Denies vomiting. Musculoskeletal: Denies myalgias. Integumentary: Denies pruritus. Denies rash. Neurological: Denies numbness. Denies weakness. Psychiatric: Denies anxiety. Denies depression. Endocrine: Denies fatigue. Denies weight change. Genitourinary: Denies burning, hematuria, frequency of urination. Hematological: No anemia or excess bleeding. Past Medical History Past Medical History: Atrial Fibrillation, Diabetes Mellitus, GERD/Reflux, Hyperlipidemia, Hypertension, Musculoskeletal Disorder Additional Past Medical History / Comment(s): carpal tunnel, diverticulosis, chronic back pain, History of Any Multi-Drug Resistant Organisms: None Reported Past Surgical History: Orthopedic Surgery Additional Past Surgical History / Comment(s): WALKER carpal tunnel surgery, WALKER shoulder replacements, L rotator cuff repair, colonoscopy 2006 with polyp removal Past Anesthesia/Blood Transfusion Reactions: No Reported Reaction Past Psychological History: No Psychological Hx Reported Smoking Status: Never smoker Past Alcohol Use History: None Reported Past Drug Use History: None Reported - Past Family History Mother Family Medical History: Cancer Additional Family Medical History / Comment(s): Cervical Brother(s) Family Medical History: Cancer Additional Family Medical History / Comment(s): Colon Medications and Allergies Home Medications Medication Instructions Recorded Confirmed Type Felodipine ER [Plendil] 5 mg PO DAILY 02/19/17 03/12/17 History Furosemide [Lasix] 40 mg PO DAILY 02/19/17 03/12/17 History Ibuprofen [Motrin] 800 mg PO BID 02/19/17 03/12/17 History Lovastatin [Mevacor] 80 mg PO HS 02/19/17 03/12/17 History Metoprolol Tartrate [Lopressor] 100 mg PO HS 02/19/17 03/12/17 History Potassium Chloride [Klor-Con 20] 20 meq PO DAILY 02/19/17 03/12/17 History metFORMIN HCL [Glucophage] 500 mg PO BID 02/19/17 03/12/17 History Allergies Allergy/AdvReac Type Severity Reaction Status Date / Time hydrochlorothiazide Allergy Rash/Hives Verified 03/12/17 15:16 lidocaine Allergy Unknown Verified 03/12/17 15:16 Physical Exam Vitals: Vital Signs Temp Pulse Pulse Resp BP BP Pulse Ox 03/13/17 08:00 97.2 F L 60 18 178/76 94 L 03/13/17 03:38 98.6 F 60 18 143/63 95 03/12/17 23:38 98.3 F 64 18 145/70 96 03/12/17 20:00 99.2 F 66 18 139/65 93 L 03/12/17 16:50 98.3 F 79 18 141/81 98 03/12/17 16:46 98.3 F 79 18 141/81 98 03/12/17 16:42 68 18 161/74 98 03/12/17 15:27 84 03/12/17 14:46 97.9 F 95 20 140/77 94 L Intake and Output 03/12/17 03/13/17 03/13/17 22:59 06:59 14:59 Intake Total 700 800 Output Total 0 Balance 0 700 800 Intake: IV 700 800 Sodium Chloride 0.9% 1, 700 800 000 ml @ 100 mls/hr IV . Q10H STA Rx#:[id number] Output: Urine 0 Other: Voiding Method Toilet Toilet Weight 73.8 kg General: The patient is awake and alert, in no distress, and does not appear acutely ill. Skin: Skin is warm and dry and no rashes or lesions are noted. Eye: Pupils are equal, round and reactive to light, extra-ocular movements are intact; there is normal conjunctiva bilaterally. Ears, nose, mouth and throat: There are moist mucous membranes and no oral lesions. Neck: The neck is supple, there is no tenderness or JVD. Cardiovascular: There is a regular rate and rhythm. No murmur, rub or gallop is appreciated. Respiratory: Lungs are clear to auscultation, respirations are non-labored, breath sounds are equal. Gastrointestinal: Soft, non-distended, non-tender abdomen without masses or organomegaly noted. There is no rebound or guarding present. Bowel sounds are unremarkable. Back: There is no tenderness to palpation in the midline. There is no obvious deformity. Musculoskeletal: Normal ROM, no tenderness, There is no pedal edema. There is no calf tenderness or swelling. Extremities: No edema. Vascular: Femoral pulse is normal. Posterior tibial pulses are normal .Dorsalis pedis is palpable. Neurological: CN II-XII intact. There are no obvious motor or sensory deficits. Speech is normal. Psychiatric: Cooperative, appropriate mood & affect, normal judgment. Results 03/12/17 15:03 03/12/17 15:03 Cardiac Enzymes 03/12/17 03/12/17 03/12/17 Range/Units 15:03 15:03 20:35 AST 26 (14-36) U/L CK-MB (CK-2) 0.7 1.0 (0.0-2.4) ng/mL Troponin I <0.012 0.197 H* (0.000-0.034) ng/mL 03/13/17 Range/Units 02:42 AST (14-36) U/L CK-MB (CK-2) 1.0 (0.0-2.4) ng/mL Troponin I 0.226 H* (0.000-0.034) ng/mL Coagulation 03/12/17 Range/Units 15:03 PT 10.3 (9.0-12.0) sec APTT 20.6 L (22.0-30.0) sec Lipids 03/13/17 Range/Units 02:42 Triglycerides 169 H (<150) mg/dL Cholesterol 128 (<200) mg/dL HDL Cholesterol 27 L (40-60) mg/dL CBC 03/12/17 Range/Units 15:03 WBC 5.3 (3.8-10.6) k/uL RBC 3.62 L (3.80-5.40) m/uL Hgb 11.1 L (11.4-16.0) gm/dL Hct 33.0 L (34.0-46.0) % Plt Count 159 (150-450) k/uL Comprehensive Metabolic Panel 03/12/17 Range/Units 15:03 Sodium 140 (137-145) mmol/L Potassium 3.8 (3.5-5.1) mmol/L Chloride 103 (98-107) mmol/L Carbon Dioxide 23 (22-30) mmol/L BUN 30 H (7-17) mg/dL Creatinine 1.20 H (0.52-1.04) mg/dL Glucose 146 H (74-99) mg/dL Calcium 9.6 (8.4-10.2) mg/dL AST 26 (14-36) U/L ALT 32 (9-52) U/L Alkaline Phosphatase 76 (38-126) U/L Total Protein 7.6 (6.3-8.2) g/dL Albumin 4.5 (3.5-5.0) g/dL Current Medications Generic Name Dose Route Start Last Admin Trade Name Freq PRN Reason Stop Dose Admin Amlodipine Besylate 5 mg 03/13/17 09:00 03/13/17 08:54 Norvasc PO 5 mg DAILY JACQUI Administration Aspirin 325 mg 03/13/17 09:00 03/13/17 08:53 Aspirin PO 325 mg DAILY JACQUI Administration Atorvastatin Calcium 20 mg 03/12/17 21:00 03/12/17 20:38 Lipitor PO 20 mg HS JACQUI Administration Furosemide 40 mg 03/13/17 09:00 03/13/17 08:53 Lasix PO 40 mg DAILY JACQUI Administration Insulin Human Lispro 0 unit 03/12/17 21:00 03/13/17 06:04 Humalog SQ Not Given [facility] Protocol Metoprolol Tartrate 100 mg 03/12/17 21:00 03/12/17 20:38 Lopressor PO 100 mg HS JACQUI Administration Nitroglycerin 0.4 mg 03/12/17 15:27 Nitrostat SUBLINGUAL Q5M PRN Chest Pain Potassium Chloride 20 meq 03/13/17 09:00 03/13/17 08:53 K-Dur 20 PO 20 meq DAILY JACQUI Administration Intake and Output 03/12/17 03/13/17 03/13/17 22:59 06:59 14:59 Intake Total 700 800 Output Total 0 Balance 0 700 800 Intake: IV 700 800 Sodium Chloride 0.9% 1, 700 800 000 ml @ 100 mls/hr IV . Q10H STA Rx#:[id number] Output: Urine 0 Other: Voiding Method Toilet Toilet Weight 73.8 kg 03/12/17 15:03 03/12/17 15:03 EKG Interpretations (text) Normal sinus rhythm. Rhythm strip show SVT Assessment and Plan Plan: Paroxysmal SVT Non-ST segment elevation MA secondary to supply demand mismatch Three-vessel coronary artery disease and medical therapy Patient needs SVT ablation I spoke to the loader unloader this will be scheduled over the next week or 2 we're going to continue the beta blockers that she is currently on and not going to start her on him rhythm suppressive therapy as it might affect the EP study
[2017-03-13 11:33] LABS: Glucose,Whole Blood 112 mg/dL (75-99)
[2017-03-13 16:53] LABS: Glucose,Whole Blood 102 mg/dL (75-99)
[2017-03-13] MEDS: METOPROLOL TARTRATE 25 MG TAB PO SCH ×2 (17:02→20:06)
--- NOTE | 2017-03-13 18:37 | ECHOF ---
Referral Reason:AF w/RVR, chest pain MEASUREMENTS -------- HEIGHT: 154.9 cm WEIGHT: 73.5 kg BP: 178/76 IVSd: 1.1 cm (0.6 - 1.1) LVIDd: 3.6 cm (3.9 - 5.3) LVPWd: 1.4 cm (0.6 - 1.1) IVSs: 2.0 cm LVIDs: 2.0 cm LVPWs: 1.7 cm LAESV Index (A-L): 30.36 ml/m Ao Diam: 3.4 cm (2.0 - 3.7) AV Cusp: 2.0 cm (1.5 - 2.6) LA Diam: 3.5 cm (2.7 - 3.8) MV EXCURSION: 13.189 mm (> 18.000) MV EF SLOPE: 62 mm/s (70 - 150) EPSS: 0.6 cm MV E Gonzalo: 0.72 m/s MV DecT: 192 ms MV A Gonzalo: 0.71 m/s MV E/A Ratio: 1.01 RAP: 5.00 mmHg RVSP: 13.19 mmHg FINDINGS -------- Sinus rhythm. This was a technically good study. There is borderline concentric left ventricular hypertrophy. Overall left ventricular systolic function is normal with, an EF between 55 - 60 %. The right ventricle is normal in size and function. LA is midly dilated 29-33ml/m2. The right atrium is normal in size. The aortic valve is trileaflet, and appears structurally normal. No aortic stenosis or regurgitation. Mild mitral regurgitation is present. Trace tricuspid regurgitation present. The right ventricular systolic pressure, as measured by Doppler, is 13.19mmHg. Pulmonic valve appears structurally normal. The aortic root size is normal. Normal inferior vena cava with normal inspiratory collapse consistent with estimated right atrial pressure of 5 mmHg. The pericardium is normal. CONCLUSIONS -------- 1. Sinus rhythm. 2. Trace tricuspid regurgitation present. 3. The right ventricular systolic pressure, as measured by Doppler, is 13.19mmHg. 4. Pulmonic valve appears structurally normal. 5. The aortic root size is normal. 6. Normal inferior vena cava with normal inspiratory collapse consistent with estimated right atrial pressure of 5 mmHg. 7. The pericardium is normal. 8. This was a technically good study. 9. There is borderline concentric left ventricular hypertrophy. 10. Overall left ventricular systolic function is normal with, an EF between 55 - 60 %. 11. The right ventricle is normal in size and function. 12. LA is midly dilated 29-33ml/m2. 13. The right atrium is normal in size. 14. The aortic valve is trileaflet, and appears structurally normal. No aortic stenosis or regurgitation. 15. Mild mitral regurgitation is present. FURNACE BUILDER: Chacha Estes RDCS
[2017-03-13] MEDS: ATORVASTATIN 20 MG TAB PO SCH (20:06)
[2017-03-13 20:57] LABS: Glucose,Whole Blood 113 mg/dL (75-99)
[2017-03-13] MEDS ORDERED: METOPROLOL TARTRATE 25 MG TAB PO SCH (21:00)
[2017-03-14 06:11] VITALS: RESP 16
[2017-03-14] MEDS: INSULIN LISPRO (humaLOG) 300 UNIT/3 ML VIAL SQ SCH ×2 (06:37→12:00)
[2017-03-14 06:38] LABS: Glucose,Whole Blood 106 mg/dL (75-99)
[2017-03-14] MEDS: amLODIPine 5 MG TAB PO SCH (07:58)
[2017-03-14] MEDS: POTASSIUM CHLORIDE ER 20 MEQ TAB.ER PO SCH (07:58)
[2017-03-14] MEDS: ASPIRIN 325 MG TAB PO SCH (07:59)
[2017-03-14] MEDS: METOPROLOL TARTRATE 25 MG TAB PO SCH (07:59)
[2017-03-14] MEDS: FUROSEMIDE 40 MG TAB PO SCH (07:59)
[2017-03-14 08:48] VITALS: BP 135/69; PULSE 63; TEMP 97.9
[2017-03-14] MEDS ORDERED: AMIODARONE 200 MG TAB PO SCH (09:00)
--- NOTE | 2017-03-14 10:46 | P.DS ---
Providers Date of admission: 03/12/17 15:27 Attending physician: Avery Ulloa Consults: 03/12/17 15:27 Consult Physician Urgent Consulting Provider: Cedric Riley Consult Reason/Comments: afib Do you want consulting provider notified?: Yes Primary care physician: Avery Ulloa The patient is a 71-year-old female who presented with weakness and palpitations. Associated with a rapid heart rate and a near syncopal type episode. The patient was converted with adenosine. The patient was subsequently monitored and seen by cardiology and please refer to their notes. Laboratory values revealed a white count of 5.3 with a hemoglobin 11.1 with an MCV of 91.2. INR was 1.0 with a PTT of 20.6. Chemistry values show normal electrolytes with a potassium of 3.8. BUN was 30 with a creatinine 1.2 given her a GFR of 44. Initial random blood sugar was 146. Other liver function tests were unremarkable. Her A1c was 6.7. Initial troponin was 0.012 but did increase on third determination 2.2-6 but this was felt to be related to supply versus demand due to the rate related supraventricular tachycardia. TSH was normal at 1.7 Lipid panel showed a triglyceride of 169 with a total cholesterol 128. LDL cholesterol was down to 67 along with HDL of 27. Her EKG post conversion showed a sinus tachycardia without definitive acute ischemic changes noted. Echocardiogram showed a sinus rhythm. Ejection fraction of 55-60%. Left atrium was felt to be mildly dilated at around 30 mm/m. Generally the valves appeared to be unremarkable. Patient has mentioned was seen by cardiology and please refer to the consultation. The patient remained in sinus rhythm during her stay. Plans are for further ablative intervention as an outpatient. Presently she will increase her metoprolol to 75 mg twice a day. Home medications: Metoprolol 75 mg twice a day has been sent through my EMR to [facility]. Continue Lasix 40 mg daily also sent to [facility]. Continue previous home medications with the lovastatin 80 mg at at bedtime Metformin 500 mg twice a day Potassium chloride 20 mEq daily Ibuprofen 800 mg twice a day as needed for pain. Felodipine ER 5 mg daily Diagnoses 1. Paroxysmal supraventricular tachycardia. Converted medically to sinus. 2. Non-ST segment elevated myocardial infarction secondary to supply and demand mismatch associated with three-vessel coronary artery disease and to continue medical therapy with also previous history of myocardial infarction and previous catheterization. 3. Type 2 diabetes 4. Hyperlipidemia on treatment 5. Hypertension on medications 6. Diffuse degenerative joint disease 7. Chronic kidney disease stage III 8. Obesity Once again patient will follow-up with cardiology and undergo ablative therapy. Return to emergency room or call office if any concerns or problems. Patient Condition at Discharge: Fair Plan - Discharge Summary New Discharge Prescriptions: No Action Potassium Chloride [Klor-Con 20] 20 meq PO DAILY metFORMIN HCL [Glucophage] 500 mg PO BID Metoprolol Tartrate [Lopressor] 100 mg PO HS Lovastatin [Mevacor] 80 mg PO HS Ibuprofen [Motrin] 800 mg PO BID Furosemide [Lasix] 40 mg PO DAILY Felodipine ER [Plendil] 5 mg PO DAILY Discharge Medication List Felodipine ER [Plendil] 5 mg PO DAILY 02/19/17 [History] Furosemide [Lasix] 40 mg PO DAILY 02/19/17 [History] Ibuprofen [Motrin] 800 mg PO BID 02/19/17 [History] Lovastatin [Mevacor] 80 mg PO HS 02/19/17 [History] Metoprolol Tartrate [Lopressor] 100 mg PO HS 02/19/17 [History] Potassium Chloride [Klor-Con 20] 20 meq PO DAILY 02/19/17 [History] metFORMIN HCL [Glucophage] 500 mg PO BID 02/19/17 [History] Follow up Appointment(s)/Referral(s): Avery Ulloa MD [Primary Care Provider] - 1-2 days Patient Instructions/Handouts: Cardiac Ablation (DC)
--- NOTE | 2017-03-14 10:50 | P.PN ---
Subjective Principal diagnosis: SVT This is a pleasant 71-year-old female who was recently admitted to [facility] with paroxysmal SVT and ruled in for myocardial infarction. She underwent cardiac catheterization at that time that revealed triple vessel coronary artery disease for which she was advised medical therapy. She presented to the emergency department yesterday with sustained palpitations and was found to be in SVT. She had mild troponin elevation is likely related to supply demand mismatch. Twelve-lead EKG was reviewed by Dr. Avila yesterday and patient will be scheduled for EP study with ablation for AVNRT. Objective - Vital Signs Vital signs: Vital Signs Temp 97.9 F 03/14/17 08:00 Pulse 63 03/14/17 08:00 Resp 16 03/14/17 08:00 BP 135/69 03/14/17 08:00 Pulse Ox 95 03/14/17 08:00 Intake & Output 03/13/17 03/14/17 03/14/17 18:59 06:59 18:59 Intake Total 1600 236 Balance 1600 236 Weight 73.2 kg Intake: IV 1600 Sodium Chloride 0.9% 1, 1600 000 ml @ 100 mls/hr IV . Q10H STA Rx#:[id number] Oral 236 Other: Voiding Method Toilet # Voids 2 0 - Exam PHYSICAL EXAMINATION: HEENT: [Head is atraumatic, normocephalic. Pupils equal, round. Neck is supple. There is no elevated jugular venous pressure.] HEART EXAMINATION: [Heart sounds regular, S1 and S2 normal. No murmur or gallop heard.] CHEST EXAMINATION:[ Lungs are clear to auscultation and precussion. No chest wall tenderness is noted on palpation or with deep breathing.] ABDOMEN: [ Soft, nontender. Bowel sounds are heard. No organomegaly noted]. EXTREMITIES:[ 2+ peripheral pulses with no evidence of peripheral edema and no calf tenderness noted]. NEUROLOGIC [patient is awake, alert and oriented x3.] . - Labs CBC & Chem 7: 03/12/17 15:03 03/12/17 15:03 Labs: Abnormal Lab Results - Last 24 Hours (Table) 03/13/17 03/13/17 03/13/17 Range/Units 11:29 16:33 20:42 POC Glucose (mg/dL) 112 H 102 H 113 H (75-99) mg/dL 03/14/17 Range/Units 06:35 POC Glucose (mg/dL) 106 H (75-99) mg/dL Assessment and Plan Plan: #1 paroxysmal SVT #2 non-ST segment elevation PR secondary to supply demand mismatch #3 three-vessel coronary artery disease on medical therapy From cardiology perspective, patient to be discharged home today. She is scheduled to undergo EP study with an ablation by Dr. Avila on March 31 at 9:30 AM. She'll be discharged home on metoprolol 75 mg by mouth twice a day she will take her last dose on March 29 in the morning. Pantera from our office will call the patient to confirm details on Thursday. The above dictated assessment and findings were discussed with signing physician. The impression and plan of care have been directed as dictated. Rosalva Banks, Nurse Practitioner, acting as scribe for signing physician.
[2017-03-14 12:23] LABS: Glucose,Whole Blood 76 mg/dL (75-99)
== END 2017-03-14 13:33 | disposition home or self-care (01) | DRG 281 ==
LOC: EC 14:33 → 6SEL 15:27
PROVIDERS: ADMIT Internal Medicine; ATTEND Internal Medicine
DX: I21.4 Non-ST elevation (NSTEMI) myocardial infarction (principal); I47.1 Supraventricular tachycardia; E11.22 Type 2 diabetes mellitus with diabetic chronic kidney disease; I48.91 Unspecified atrial fibrillation; I12.9 Hypertensive chronic kidney disease with stage 1 through stage 4 chronic kidney disease, or unspecified chronic kidney disease; E78.5 Hyperlipidemia, unspecified; I25.10 Atherosclerotic heart disease of native coronary artery without angina pectoris; I25.2 Old myocardial infarction; K21.9 Gastro-esophageal reflux disease without esophagitis; N18.3 Chronic kidney disease, stage 3 (moderate); Z79.01 Long term (current) use of anticoagulants; Z79.84 Long term (current) use of oral hypoglycemic drugs; Z79.899 Other long term (current) drug therapy; Z82.49 Family history of ischemic heart disease and other diseases of the circulatory system; Z83.3 Family history of diabetes mellitus; Z86.010 Personal history of colon polyps; Z79.1 Long term (current) use of non-steroidal anti-inflammatories (NSAID); Z88.4 Allergy status to anesthetic agent; Z88.8 Allergy status to other drugs, medicaments and biological substances; E66.9 Obesity, unspecified; Z68.31 Body mass index [BMI] 31.0-31.9, adult; K57.90 Diverticulosis of intestine, part unspecified, without perforation or abscess without bleeding; M19.90 Unspecified osteoarthritis, unspecified site; Z96.612 Presence of left artificial shoulder joint; Z96.611 Presence of right artificial shoulder joint; M54.9 Dorsalgia, unspecified; G89.29 Other chronic pain
CPT/HCPCS: 36415; 80053; 80061; 82550; 82553; 83036; 83735; 84100; 84443; 84484; 85025; 85610; 85730; 93005; 93306; 96360; 96361; 99291

== ENCOUNTER → 2017-03-24 | Outpatient (CLI) | payer MEDICARE, OTHER ==
[2017-03-24 15:01] LABS: CH 30.6; CHCM 32.9; HCT 35.6 % (34.0-46.0); HDW 2.68; HGB 11.6 gm/dL (11.4-16.0); MCH 30.4 pg (25.0-35.0); MCHC 32.4 g/dL (31.0-37.0); MCV 93.6 fL (80.0-100.0); Mean Platelet Volume 8.5; RBC 3.81 m/uL (3.80-5.40); RDW 14.4 % (11.5-15.5); WBC 5.3 k/uL (3.8-10.6)
[2017-03-24 15:02] LABS: Calcium 9.8 mg/dL (8.4-10.2); Potassium 4.6 mmol/L (3.5-5.1)
== END | disposition home or self-care (01) ==
LOC: LABWHC1 14:07
PROVIDERS: ATTEND Internal Medicine Clinical Cardiac Electrophysiology
DX: I10 Essential (primary) hypertension (principal)
CPT/HCPCS: 36415; 80048; 85027

== ENCOUNTER 2017-03-31 08:18 | Day surgery (SDC) | payer MEDICARE, OTHER ==
[2017-03-26 10:12] VITALS: BMI 32.3
[~2017-03-31 08:18] MED LIST: HYDROmorphone 0.5 MG/0.5 ML SYRINGE IVP PRN; MIDAZOLAM 2 MG/2 ML VIAL IV PRN; ONDANSETRON 4 MG/2 ML VIAL IVP ONE
[2017-03-31 08:54] LABS: Glucose,Whole Blood 129 mg/dL (75-99)
[2017-03-31] MEDS ORDERED: MIDAZOLAM 2 MG/2 ML VIAL ONE (09:35)
[2017-03-31] MEDS ORDERED: METOPROLOL TARTRATE 5 MG/5 ML VIAL IVP ONE (09:35)
[2017-03-31] MEDS ORDERED: fentaNYL (PF) 50 MCG/ML 2 ML AMP ONE (09:35)
[2017-03-31] MEDS ORDERED: ISOPROTERENOL 250 MCG/1.25 ML SYR IV ONE (09:35)
[2017-03-31] MEDS ORDERED: PROPOFOL 10 MG/ML 20 ML VIAL IV ONE (09:35)
[2017-03-31] MEDS ORDERED: IV FLUID CONTINUATION 1,000 ML IV ONE (09:56)
[2017-03-31] MEDS ORDERED: CHLOROPROCAINE 3% 30 MG/ML 20 ML VIAL MISCELLANE ONE ×2 (10:00→10:16)
[2017-03-31] MEDS ORDERED: ACETAMINOPHEN IV (For NPO) 1,000 MG in EMPTY BAG 1 BAG IVPB ONE (11:33)
[2017-03-31] MEDS ORDERED: ACETAMINOPHEN TAB 325 MG TAB PO PRN (11:33)
[2017-03-31] MEDS ORDERED: HYDROcodone/APAP 5-325MG 1 EACH TAB PO PRN (11:33)
[2017-03-31] MEDS ORDERED: LACTATED RINGERS 1,000 ML IV ONE (12:04)
[2017-03-31] MEDS ORDERED: ACETAMINOPHEN IV (For NPO) 1,000 MG/100 ML VIAL IVPB ONE (12:15)
--- NOTE | 2017-03-31 12:24 | CE ---
CARDIAC ELECTROPHYSIOLOGY REPORT A 71-year-old female patient of Dr. Ulloa and Dr. Krissy Jean Baptiste. Adrianna has a history of recurrent SVT. She is drug refractory. She was in the hospital over a month back with recurrent supraventricular tachycardia that was difficult to control. She is asymptomatic from it. She was brought in today for a diagnostic EP study and possible radiofrequency ablation. Patient is brought to the EP lab in a fasting state. Written informed consent was obtained prior to the procedure. Both groins were prepped and draped as per protocol. Venous sheaths were placed in the right femoral vein. Via these, diagnostic catheters were placed in the right heart (High right atrial catheter, HIS bundle catheter, RV catheter and coronary sinus catheter). Baseline measurements are as follows: Sinus cycle length 908 ms, IL interval 150 ms, QRS 93 ms, QT 399 ms. AH interval 84 ms, HV interval 46 ms. Sinus node recovery times at 600, 500, and 400 ms were 1291, 1276 and 939 ms. AV michelle Wenckebach block 320 ms, slow pathway conduction noted during straight pacing at 370 ms. VA Wenckebach Block less than 400 ms. With straight pacing from the high right atrium, SVT was induced with a long AH interval at onset. Separate times less than 60 ms. Tachycardia spontaneously terminated with ventricular signal. This was consistent with AV michelle reentry. A long sheath was placed. An RF ablation catheter was placed, 4 mm tip. 3D mapping of the posterior septal right atrium was performed, the HIS cloud was mapped: Coronary sinus was mapped intact. Tricuspid anulus was mapped. Slow pathway was mapped and RF ablations were delivered, junctional rhythm was obtained. Following that, diagnostic EP study was repeated. Straight pacing revealed absence of any slow pathway conduction. Following that, wide open Isuprel was used, straight pacing was performed from the high right atrium, from the coronary sinus and from the right ventricular. Extra stimulation was performed from multiple sites. There was no evidence for AV michelle reentry. No evidence for slow pathway conduction antegradely. Excellent residual fast pathway conduction adequately noted. Patient tolerated the procedure well without any acute complications. 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 MMODL / IJN: [id number] /
--- NOTE | 2017-03-31 12:27 | LTR ---
Date: DATE OF SERVICE: RE: Adrianna Laughlin Dear Dr. Ulloa; I had the pleasure of seeing Adrianna Laughlin in electrophysiology follow up. Adrianna underwent a diagnostic EP study which revealed easily inducible AV michelle reentry. She underwent successful ablation for this and the tachycardia was rendered noninducible. She will continue all her cardiac medications but I will now reduce the dose of metoprolol. She does have underlying coronary artery disease, triple-vessel. Thank you for entrusting me with the care of your patient. Warm regards. Sincerely, Grabiel Avila MD MMPAWANL / IJN: [id number] /
[2017-03-31 13:03] LABS: Glucose,Whole Blood 114 mg/dL (75-99)
[2017-03-31] MEDS: SODIUM CHLORIDE 0.9% 1,000 ML IV SCH (14:31)
[2017-03-31] MEDS: LACTATED RINGERS 1,000 ML IV SCH (14:31)
[2017-03-31 17:26] LABS: Glucose,Whole Blood 205 mg/dL (75-99)
--- NOTE | 2017-03-31 17:33 | P.CON ---
Consult Note - . Assessment/Plan:: History of present illness: The patient is a 71-year-old female who underwent EP studies earlier today revealing a inducible AV michelle reentry and underwent successful ablation. She has been admitted by cardiology and has underlying history of type 2 diabetes for which we have been asked to see for control. Past medical history Patient has had admissions for the tachycardias associated with the chest discomfort. Patient also had cardiac catheterization earlier this year which did reveal some element of triple-vessel disease. Type 2 diabetes Hyperlipidemia Hypertension Diffuse osteoarthritis Obesity Chronic kidney disease stage III. ALLERGIES to hydrochlorothiazide with rash and hives and lidocaine with itching. Home medications Metoprolol titrate 75 mg twice a day Isorbid mononitrate ER 30 mg daily Metformin 500 mg twice a day Klor-Con 20, 20 mg daily Lovastatin 80 mg at at bedtime Ibuprofen 800 mg twice a day when necessary Furosemide 40 mg daily Plendil 5 mg daily Plavix 75 mg daily. Review of systems: Patient presently lying in bed. She denies any unusual headaches. No chest pain. No shortness of breath. No nausea or vomiting. No unusual extremity pain. Family history Positive for coronary artery disease and diabetes Social history No history of smoking. Patient is presently retired. No history of any excessive alcohol intake and she lives locally and independently in the local area of [place] Physical examination Vital signs reveal temperature 98.6 with a pulse of 82 and respirations 18. Blood pressure 157/72 and she is 95% saturated on room air. Head and neck exam unremarkable. Lungs are clear to auscultation. Heart tones regular without murmurs or rubs. Abdomen is obese but soft and nontender. Extremities reveal no edema. Cranial nerves are intact. She is alert and oriented. No focal weakness noted. Labs Blood sugars varied from 129 up to 205. Impressions and plans: Patient is status post EP procedure. We will continue her on her metformin. Accu-Cheks and coverage to be done. Progress as per surgery. Please call if any questions or concerns.
[2017-03-31] MEDS: metFORMIN 500 MG TAB PO SCH (17:42)
[2017-03-31] MEDS: INSULIN LISPRO (humaLOG) 300 UNIT/3 ML VIAL SQ SCH ×2 (18:23→21:05)
[2017-03-31 20:33] LABS: Glucose,Whole Blood 90 mg/dL (75-99)
[2017-03-31] MEDS ORDERED: ATORVASTATIN 20 MG TAB PO SCH (21:00)
[2017-03-31] MEDS: METOPROLOL TARTRATE 50 MG TAB PO SCH (21:04)
[2017-04-01 06:39] LABS: Glucose,Whole Blood 109 mg/dL (75-99)
[2017-04-01] MEDS: LACTATED RINGERS 1,000 ML IV SCH (07:43)
[2017-04-01] MEDS: SODIUM CHLORIDE 0.9% 1,000 ML IV SCH (07:43)
[2017-04-01] MEDS: INSULIN LISPRO (humaLOG) 300 UNIT/3 ML VIAL SQ SCH (07:44)
[2017-04-01 08:01] VITALS: RESP 18
[2017-04-01] MEDS: metFORMIN 500 MG TAB PO SCH (08:10)
--- NOTE | 2017-04-01 08:30 | P.PN ---
Progress Note - Text Patient is a 71 female who yesterday underwent EP studies and successful ablation of AV michelle reentry. This morning she is sitting up in bed. Alert. No complaints of chest pain or shortness of breath. No nausea or vomiting. This morning vital signs reveal temperature 98.2 with a pulse of 64 and respirations 18. Blood pressure is 154/68 and she is 92% saturated on room air. Lung and heart exams clear and regular. Abdomen is nontender. No distal edema. No neurological changes. Blood sugar this morning is 109. Impressions and plans Discussed with the cardiology. Anticipating discharge today. Patient may resume routine follow-up in the office. call if questions concerns or problems. Cardiology has decreased her beta figueroa.
--- NOTE | 2017-04-01 08:34 | P.DS ---
Providers Attending physician: Grabiel Avila Consults: 03/31/17 11:35 Consult Physician Routine Consulting Provider: Avery Ulloa Reason/Comments: diabetes management Do you want consulting provider notified?: Yes Primary care physician: Avery Ulloa [facility] Course: Patient is doing well. She is resting comfortably in bed. She did get out of bed and walk to the bathroom and in the hallway. The groins have healed well. No hematoma no bruising. She denies any chest discomfort no undue shortness of breath no dizziness or lightheadedness. She looks comfortable. He normally. On examination she is afebrile 98.2F pulse rate is in the 60s respirations are normal blood pressure 154 x 68 155/78 mmHg and 142/72 mmHg Breath sounds are clear no rhonchi no crackles equal air entry bilaterally Heart sounds S1 and S2 are normal no murmurs no gallops Abdomen is soft nontender No hepatojugular reflux No hematoma in the groins bilaterally. Impression Recurrent drug refractory symptomatic SVT, AV michelle reentry, status post successful ablation Known triple-vessel coronary artery disease Hypertension Dyslipidemia Suggest Reduce metoprolol to 50 g twice daily continue all other medications follow-up with Dr. Jean Baptiste in 1 week and if her blood pressure still elevated and he may consider increasing felodipine to 10 mg by mouth daily Follow-up with Dr. Ulloa and follow Dr. Jean Baptiste Patient Condition at Discharge: Good Plan - Discharge Summary New Discharge Prescriptions: No Action Potassium Chloride [Klor-Con 20] 20 meq PO DAILY metFORMIN HCL [Glucophage] 500 mg PO BID Lovastatin [Mevacor] 80 mg PO HS Ibuprofen [Motrin] 800 mg PO BID Furosemide [Lasix] 40 mg PO DAILY Felodipine ER [Plendil] 5 mg PO DAILY Metoprolol Tartrate [Lopressor] 75 mg PO BID #60 tab Isosorbide Mononitrate ER [Imdur] 30 mg PO DAILY Clopidogrel [Plavix] 75 mg PO DAILY Discharge Medication List Felodipine ER [Plendil] 5 mg PO DAILY 02/19/17 [History] Furosemide [Lasix] 40 mg PO DAILY 02/19/17 [History] Ibuprofen [Motrin] 800 mg PO BID 02/19/17 [History] Lovastatin [Mevacor] 80 mg PO HS 02/19/17 [History] Potassium Chloride [Klor-Con 20] 20 meq PO DAILY 02/19/17 [History] metFORMIN HCL [Glucophage] 500 mg PO BID 02/19/17 [History] Metoprolol Tartrate [Lopressor] 75 mg PO BID #60 tab 03/14/17 [Rx] Clopidogrel [Plavix] 75 mg PO DAILY 03/26/17 [History] Isosorbide Mononitrate ER [Imdur] 30 mg PO DAILY 03/26/17 [History]
[2017-04-01] MEDS: METOPROLOL TARTRATE 50 MG TAB PO SCH (08:55)
[2017-04-01] MEDS ORDERED: POTASSIUM CHLORIDE ER 20 MEQ TAB.ER PO SCH (09:00)
[2017-04-01] MEDS ORDERED: FUROSEMIDE 40 MG TAB PO SCH (09:00)
[2017-04-01] MEDS ORDERED: CLOPIDOGREL 75 MG TAB PO SCH (09:00)
[2017-04-01] MEDS ORDERED: ISOSORBIDE MONONITRATE ER 30 MG TAB.ER.24H PO SCH (09:00)
[2017-04-01] MEDS ORDERED: amLODIPine 5 MG TAB PO SCH (09:00)
[2017-04-01 12:12] LABS: Glucose,Whole Blood 109 mg/dL (75-99)
[2017-04-01 12:23] VITALS: BP 162/66; PULSE 68; TEMP 98
== END 2017-04-01 12:42 | disposition home or self-care (01) ==
LOC: CATHEP 08:18 → 3OBS 11:23 → CATHEP 04-01 12:42
PROVIDERS: ATTEND Internal Medicine Clinical Cardiac Electrophysiology
DX: I47.1 Supraventricular tachycardia (principal); I25.10 Atherosclerotic heart disease of native coronary artery without angina pectoris; E78.5 Hyperlipidemia, unspecified; I25.2 Old myocardial infarction; I12.9 Hypertensive chronic kidney disease with stage 1 through stage 4 chronic kidney disease, or unspecified chronic kidney disease; E11.22 Type 2 diabetes mellitus with diabetic chronic kidney disease; N18.3 Chronic kidney disease, stage 3 (moderate); Z79.84 Long term (current) use of oral hypoglycemic drugs; Z68.37 Body mass index [BMI] 37.0-37.9, adult; E66.9 Obesity, unspecified; M19.90 Unspecified osteoarthritis, unspecified site; Z79.02 Long term (current) use of antithrombotics/antiplatelets; Z79.1 Long term (current) use of non-steroidal anti-inflammatories (NSAID); Z79.899 Other long term (current) drug therapy; Z88.4 Allergy status to anesthetic agent; Z88.8 Allergy status to other drugs, medicaments and biological substances; Z91.09 Other allergy status, other than to drugs and biological substances
CPT/HCPCS: 93623; 93613; 93653; C1894; C1769 ×2; C1730 ×3; C1732; C1893; J2400; J2250; J3010; J0131; J2704

== ENCOUNTER → 2017-08-11 | Outpatient (CLI) | payer MEDICARE, OTHER ==
[2017-08-15 19:13] LABS: Large VLDL Particle Number,NMR 7.6 nmol/L (<=2.7)
== END | disposition home or self-care (01) ==
LOC: LABWHC1 08:12
PROVIDERS: ATTEND Internal Medicine Cardiovascular Disease
DX: E78.2 Mixed hyperlipidemia (principal)
CPT/HCPCS: 36415; 83704

== ENCOUNTER → 2017-11-04 | Outpatient (CLI) | payer MEDICARE, OTHER ==
--- NOTE | 2017-11-05 11:00 | MM ---
Reason for exam: screening (asymptomatic). Last mammogram was performed 1 year and 1 month ago. History: Patient is postmenopausal and is nulliparous. Family history of breast cancer in cousin. Took estrogen for 5 years beginning at age 49. Physical Findings: A clinical breast exam by your physician is recommended on an annual basis and results should be correlated with mammographic findings. MG 3D Screening Mammo W/Cad Bilateral CC and MLO view(s) were taken. Prior study comparison: October 06, 2016, bilateral MG 3d screening mammo w/cad. September 20, 2015, bilateral MG 3d screening mammo w/cad. There are scattered fibroglandular densities. Benign calcifications bilaterally. No significant changes when compared with prior studies. ASSESSMENT: Benign, BI-RAD 2 RECOMMENDATION: Routine screening mammogram of both breasts in 1 year.
== END | disposition home or self-care (01) ==
LOC: RADMAMWWP 09:13
PROVIDERS: ATTEND Internal Medicine
DX: Z12.31 Encounter for screening mammogram for malignant neoplasm of breast (principal)
CPT/HCPCS: 77063; 77067

== ENCOUNTER → 2018-11-25 | Outpatient (CLI) | payer MEDICARE, OTHER ==
--- NOTE | 2018-11-25 11:56 | BD ---
EXAMINATION TYPE: Axial Bone Density DATE OF EXAM: 11/25/2018 COMPARISON: 2016 CLINICAL HISTORY: Postmenopausal female. Osteoporosis screening. Height: 58.5 inches Weight: 147 FRAX RISK QUESTIONS: Alcohol (3 or more units per day): no Family History (Parent hip fracture): no Glucocorticoids (More than 3mos): no (Ex: prednisone, prednisolone, methylprednisolone, dexamethasone, and hydrocortisone). History of Fracture in Adulthood: no Secondary Osteoporosis: 1. Type 1 Diabetes: no 2. Hyperthyroidism: no 3. Menopause before 45: no 4. Malnutrition: no 5. Chronic liver disease: no Rheumatoid Arthritis: no Current Tobacco Use: no RISK FACTORS HISTORY OF: Family History of Osteoporosis: not to patient's knowledge Active: yes Diet low in dairy products/other sources of calcium: at least one serving a day Postmenopausal woman: yes Take estrogen and/or progesterone medications: not now How long: about 5 years Lost more than 2 inches in height since high school: no Frequent falls: no Poor Health: no Hyperparathyroidism: no Adrenal Insufficiency: no MEDICATIONS: Prednisone or other steroids: no Thyroid Medications: no Osteoporosis Medications: no Additional Medications: metformin,blood pressure med, cholesterol med Additional History: type 2 diabetic EXAM MEASUREMENTS: Bone mineral densitometry was performed using the [employer] System. Bone mineral density as measured about the Lumbar spine is: ----- L1-L4(G/cm2): 1.472 T Score Values are as follows: ----- L2: 0.8 ----- L3: 4.0 ----- L4: 3.8 ----- L1-L4: 2.4 Bone mineral density has: Decreased -1.9% since study of: 09/20/2015 Bone mineral density about the R hip (g/cm2): 1.132 Bone mineral density about the L hip (g/cm2): 0.954 T Score values are as follows: -----R Neck: 0.7 -----L Neck: -0.6 -----R Total: 1.6 -----L Total: 1.2 Bone mineral density has: Decreased -6.8% since study of: 09/20/2015 IMPRESSION: Normal (Values between +1 and -1 indicate normal bone mass). Consider repeating this study in 5 year s or sooner if there is some new clinical indication. NOTE: T-SCORE=SD OF THE YOUNG ADULT MEAN.
--- NOTE | 2018-11-30 10:27 | MM ---
Reason for exam: screening (asymptomatic). Last mammogram was performed 1 year and 1 month ago. History: Patient is postmenopausal and is nulliparous. Family history of breast cancer in cousin. Took estrogen for 5 years beginning at age 49. Physical Findings: A clinical breast exam by your physician is recommended on an annual basis and results should be correlated with mammographic findings. MG 3D Screening Mammo W/Cad Bilateral CC and MLO view(s) were taken. Prior study comparison: November 04, 2017, bilateral MG 3d screening mammo w/cad. October 06, 2016, bilateral MG 3d screening mammo w/cad. There are scattered fibroglandular densities. No significant changes when compared with prior studies. ASSESSMENT: Benign, BI-RAD 2 RECOMMENDATION: Routine screening mammogram of both breasts in 1 year.
== END | disposition home or self-care (01) ==
LOC: RADMAMWWP 09:33
PROVIDERS: ATTEND Internal Medicine
DX: Z12.31 Encounter for screening mammogram for malignant neoplasm of breast (principal); Z78.0 Asymptomatic menopausal state
CPT/HCPCS: 77063; 77067; 77080

== ENCOUNTER → 2019-04-15 | Outpatient (CLI) | payer MEDICARE, OTHER ==
--- NOTE | 2019-04-15 18:27 | US ---
EXAMINATION TYPE: US kidneys/renal and bladder DATE OF EXAM: 04/15/2019 COMPARISON: NONE CLINICAL HISTORY: N18.4 CKD Stage 4. CKD stage 4 EXAM MEASUREMENTS: Right Kidney: 9.4 x 4.6 x 4.3 cm Left Kidney: 9.4 x 4.2 x 4.3 cm Right Kidney: no hydronephrosis, 0.8cm cortical cyst inferior pole Left Kidney: no hydronephrosis, 2 small cortical hypoechoic nodules inferior with largest measuring 0 .7cm,. There is a 0.6cm echogenic focus mid pole Bladder: wnl Bilateral Jets seen: no IMPRESSION: 1. Nonobstructing 6 mm left renal calculus. 2. Bilateral hypoechoic nodules too small to characterize but most likely related to cysts. 3. There is increased echogenicity of the renal cortex correlate for chronic medical renal disease
== END | disposition home or self-care (01) ==
LOC: RADUSMAIN 17:40
PROVIDERS: ATTEND Nurse Practitioner Family
DX: N20.0 Calculus of kidney (principal); N28.89 Other specified disorders of kidney and ureter; R22.9 Localized swelling, mass and lump, unspecified; N18.4 Chronic kidney disease, stage 4 (severe)
CPT/HCPCS: 76770

== ENCOUNTER 2021-02-02 20:22 | Emergency (ER) | payer MEDICARE ==
[2021-02-02] MEDS ORDERED: SODIUM CHLORIDE 0.9% 1,000 ML IV STA (20:34)
[2021-02-02] MEDS ORDERED: ACETAMINOPHEN TAB 500 MG TAB PO STA (20:34)
--- NOTE | 2021-02-02 21:09 | XR ---
EXAMINATION TYPE: XR chest 2V DATE OF EXAM: 02/02/2021 COMPARISON: NONE HISTORY: Fever TECHNIQUE: 2 views FINDINGS: There is no heart failure nor confluent pneumonic infiltrate. Costophrenic angles are clear . There is bilateral shoulder prosthesis. There is no pleural effusion. There are no hilar masses. IMPRESSION: No active cardiopulmonary disease. Normal heart.
[2021-02-02 21:11] LABS: Basophils % (A) 0 %; Eosinophils % (A) 0 %; HCT 35.5 % (34.0-46.0); HGB 11.9 gm/dL (11.4-16.0); Lymphocytes # (A) 0.2 k/uL (1.0-4.8); Lymphocytes % (A) 2 %; MCH 31.6 pg (25.0-35.0); MCHC 33.5 g/dL (31.0-37.0); MCV 94.1 fL (80.0-100.0); Mean Platelet Volume 8.7; Monocytes # (A) 0.3 k/uL (0-1.0); Monocytes % (A) 4 %; Neutrophils % (A) 93 %; RBC 3.77 m/uL (3.80-5.40); RDW 13.4 % (11.5-15.5); WBC 9.7 k/uL (3.8-10.6)
[2021-02-02 21:22] LABS: Albumin 3.5 g/dL (3.5-5.0); Calcium 8.7 mg/dL (8.4-10.2); Potassium 3.9 mmol/L (3.5-5.1); Total Bilirubin 0.5 mg/dL (0.2-1.3); Total Protein 6.7 g/dL (6.3-8.2)
--- NOTE | 2021-02-02 21:26 | ED ---
Fever HPI - General Source: patient, RN notes reviewed Mode of arrival: ambulatory Limitations: no limitations <Hilton Eisenberg - Last Filed: 02/02/21 22:18> <Luisa Rutherford - Last Filed: 02/03/21 16:32> - General Chief Complaint: Fever Stated Complaint: Weakness Time Seen by Provider: 02/02/21 20:28 - History of Present Illness Initial Comments: Patient is a 75-year-old female that presents to the emergency department complaining of a fever with dry throat for the past one week. She notes that she was told it was not respiratory tract infection and was told to take Tylenol for symptomatic control. She notes that she came to the ER to get reevaluated. She notes that she did test negative for Covid influenza at the previous hospital she went to. She notes that she does have kidney issues and cannot take Motrin. She otherwise had no other issues or complaints other than the fever and some dry throat. She was in no distress or pain during the exam interview. She denied any chest pain headache nausea vomiting diarrhea constipation fever fatigue chills. (Hilton Eisenberg) - Related Data Home Medications Medication Instructions Recorded Confirmed Felodipine ER [Plendil] 5 mg PO DAILY 02/19/17 03/26/17 Furosemide [Lasix] 40 mg PO DAILY 02/19/17 03/26/17 Ibuprofen [Motrin] 800 mg PO BID 02/19/17 03/26/17 Lovastatin [Mevacor] 80 mg PO HS 02/19/17 03/26/17 Potassium Chloride [Klor-Con 20] 20 meq PO DAILY 02/19/17 03/26/17 metFORMIN HCL [Glucophage] 500 mg PO BID 02/19/17 03/31/17 Clopidogrel [Plavix] 75 mg PO DAILY 03/26/17 03/26/17 Isosorbide Mononitrate ER [Imdur] 30 mg PO DAILY 03/26/17 03/31/17 Previous Rx's Medication Instructions Recorded Metoprolol Tartrate [Lopressor] 50 mg PO BID #60 tab 04/01/17 Cephalexin [Keflex] 500 mg PO Q8HR #21 cap 02/02/21 Allergies Allergy/AdvReac Type Severity Reaction Status Date / Time hydrochlorothiazide Allergy Rash/Hives Verified 02/02/21 20:27 lidocaine Allergy Itching Verified 02/02/21 20:27 Review of Systems ROS Other: All systems not noted in ROS Statement are negative. <Hilton Eisenberg - Last Filed: 02/02/21 22:18> ROS Other: All systems not noted in ROS Statement are negative. <Luisa Rutherford - Last Filed: 02/03/21 16:32> ROS Statement: Those systems with pertinent positive or pertinent negative responses have been documented in the HPI. Past Medical History Past Medical History: Atrial Fibrillation, Diabetes Mellitus, GERD/Reflux, Hyperlipidemia, Hypertension, Musculoskeletal Disorder Additional Past Medical History / Comment(s): carpal tunnel, diverticulosis, chronic back pain, History of Any Multi-Drug Resistant Organisms: None Reported Past Surgical History: Orthopedic Surgery Additional Past Surgical History / Comment(s): WALKER carpal tunnel surgery, WALKER shoulder replacements, L rotator cuff repair, colonoscopy 2006 with polyp removal Past Anesthesia/Blood Transfusion Reactions: No Reported Reaction Past Psychological History: No Psychological Hx Reported Smoking Status: Never smoker Past Alcohol Use History: None Reported Past Drug Use History: None Reported - Past Family History Mother Family Medical History: Cancer Additional Family Medical History / Comment(s): Cervical Brother(s) Family Medical History: Cancer Additional Family Medical History / Comment(s): Colon <Eisenberg,Hilton - Last Filed: 02/02/21 22:18> General Exam Limitations: no limitations General appearance: alert, in no apparent distress Head exam: Present: atraumatic, normocephalic, normal inspection Eye exam: Present: normal appearance, PERRL, EOMI. Absent: scleral icterus, conjunctival injection, periorbital swelling Neck exam: Present: normal inspection Respiratory exam: Present: normal lung sounds bilaterally. Absent: respiratory distress, wheezes, rales, rhonchi, stridor Cardiovascular Exam: Present: regular rate, normal rhythm, normal heart sounds. Absent: systolic murmur, diastolic murmur, rubs, gallop, clicks GI/Abdominal exam: Present: soft, normal bowel sounds. Absent: distended, tenderness, guarding, rebound, rigid Extremities exam: Present: normal inspection, full ROM, normal capillary refill. Absent: tenderness, pedal edema, joint swelling, calf tenderness Neurological exam: Present: alert, oriented X3 Psychiatric exam: Present: normal affect, normal mood Skin exam: Present: warm, dry, intact, normal color. Absent: rash <Hilton Eisenberg - Last Filed: 02/02/21 22:18> Course Vital Signs 02/02/21 02/02/21 02/02/21 20:24 21:26 22:42 Temperature 102.3 F H 100.6 F H Pulse Rate 122 H 84 80 Respiratory 20 18 16 Rate Blood Pressure 127/69 130/68 117/65 O2 Sat by Pulse 95 98 98 Oximetry Medical Decision Making - Lab Data Result diagrams: 02/02/21 20:38 02/02/21 20:38 - Radiology Data Radiology results: report reviewed, image reviewed <Hilton Eisenberg - Last Filed: 02/02/21 22:18> - Lab Data Result diagrams: 02/02/21 20:38 02/02/21 20:38 <Luisa Rutherford - Last Filed: 02/03/21 16:32> - Medical Decision Making 75 she'll female complaining of fever and dry throat times one week. Covid test, influenza test, basic labs, chest x-ray, EKG ordered. 1000 mg Tylenol ordered for fever. Chest x-ray negative for any acute process. Urinalysis shows a urinary tract infection, patient will be sent antibiotics. Admission for observation was recommended the patient but she prefers to go home at this time. Case discussed with Dr. Rutherford, patient can discharge home with follow-up to primary care the next 1-2 days. (Hilton Eisenberg) I was available for consultation in the emergency department. The history and physical exam were done by the midlevel provider. I was consulted for this patients care. I reviewed the case with the midlevel provider and based on their presentation of the patient, I agree with the assessment, medical decision making and plan of care as documented. Chart was dictated using [employer] dictation software. Attempts were made to correct any dictation errors however some typographical errors may persist. Patient was seen during a national state of emergency due to the Covid-19 pandemic. (Luisa Rutherford) - Lab Data Lab Results 02/02/21 02/02/21 02/02/21 Range/Units 20:38 20:38 20:38 WBC 9.7 (3.8-10.6) k/uL RBC 3.77 L (3.80-5.40) m/uL Hgb 11.9 (11.4-16.0) gm/dL Hct 35.5 (34.0-46.0) % MCV 94.1 (80.0-100.0) fL MCH 31.6 (25.0-35.0) pg MCHC 33.5 (31.0-37.0) g/dL RDW 13.4 (11.5-15.5) % Plt Count 86 L (150-450) k/uL MPV 8.7 Neutrophils % 93 % Lymphocytes % 2 % Monocytes % 4 % Eosinophils % 0 % Basophils % 0 % Neutrophils # 9.0 H (1.3-7.7) k/uL Lymphocytes # 0.2 L (1.0-4.8) k/uL Monocytes # 0.3 (0-1.0) k/uL Eosinophils # 0.0 (0-0.7) k/uL Basophils # 0.0 (0-0.2) k/uL Sodium 136 L (137-145) mmol/L Potassium 3.9 (3.5-5.1) mmol/L Chloride 103 (98-107) mmol/L Carbon Dioxide 20 L (22-30) mmol/L Anion Gap 13 mmol/L BUN 47 H (7-17) mg/dL Creatinine 2.10 H (0.52-1.04) mg/dL Est GFR (CKD-EPI)AfAm 26 (>60 ml/min/1.73 sqM) Est GFR (CKD-EPI)NonAf 22 (>60 ml/min/1.73 sqM) Glucose 188 H (74-99) mg/dL Calcium 8.7 (8.4-10.2) mg/dL Total Bilirubin 0.5 (0.2-1.3) mg/dL AST 67 H (14-36) U/L ALT 48 H (4-34) U/L Alkaline Phosphatase 172 H (38-126) U/L Total Protein 6.7 (6.3-8.2) g/dL Albumin 3.5 (3.5-5.0) g/dL Urine Color Yellow Urine Appearance Cloudy H (Clear) Urine pH 5.5 (5.0-8.0) Ur Specific [place] 1.012 (1.001-1.035) Urine Protein 2+ H (Negative) Urine Glucose (UA) Negative (Negative) Urine Ketones Negative (Negative) Urine Blood Moderate H (Negative) Urine Nitrite Positive H (Negative) Urine Bilirubin Negative (Negative) Urine Urobilinogen <2.0 (<2.0) mg/dL Ur Leukocyte Esterase Large H (Negative) Urine RBC 17 H (0-5) /hpf Urine WBC 54 H (0-5) /hpf Urine WBC Clumps Few H (None) /hpf Ur Squamous Epith Cells 1 (0-4) /hpf Amorphous Sediment Rare H (None) /hpf Urine Bacteria Occasional H (None) /hpf Urine Mucus Rare H (None) /hpf Coronavirus (PCR) (Not Detectd) Influenza Type A RNA (Not Detectd) Influenza Type B (PCR) (Not Detectd) 02/02/21 02/02/21 Range/Units 20:38 20:38 WBC (3.8-10.6) k/uL RBC (3.80-5.40) m/uL Hgb (11.4-16.0) gm/dL Hct (34.0-46.0) % MCV (80.0-100.0) fL MCH (25.0-35.0) pg MCHC (31.0-37.0) g/dL RDW (11.5-15.5) % Plt Count (150-450) k/uL MPV Neutrophils % % Lymphocytes % % Monocytes % % Eosinophils % % Basophils % % Neutrophils # (1.3-7.7) k/uL Lymphocytes # (1.0-4.8) k/uL Monocytes # (0-1.0) k/uL Eosinophils # (0-0.7) k/uL Basophils # (0-0.2) k/uL Sodium (137-145) mmol/L Potassium (3.5-5.1) mmol/L Chloride (98-107) mmol/L Carbon Dioxide (22-30) mmol/L Anion Gap mmol/L BUN (7-17) mg/dL Creatinine (0.52-1.04) mg/dL Est GFR (CKD-EPI)AfAm (>60 ml/min/1.73 sqM) Est GFR (CKD-EPI)NonAf (>60 ml/min/1.73 sqM) Glucose (74-99) mg/dL Calcium (8.4-10.2) mg/dL Total Bilirubin (0.2-1.3) mg/dL AST (14-36) U/L ALT (4-34) U/L Alkaline Phosphatase (38-126) U/L Total Protein (6.3-8.2) g/dL Albumin (3.5-5.0) g/dL Urine Color Urine Appearance (Clear) Urine pH (5.0-8.0) Ur Specific [place] (1.001-1.035) Urine Protein (Negative) Urine Glucose (UA) (Negative) Urine Ketones (Negative) Urine Blood (Negative) Urine Nitrite (Negative) Urine Bilirubin (Negative) Urine Urobilinogen (<2.0) mg/dL Ur Leukocyte Esterase (Negative) Urine RBC (0-5) /hpf Urine WBC (0-5) /hpf Urine WBC Clumps (None) /hpf Ur Squamous Epith Cells (0-4) /hpf Amorphous Sediment (None) /hpf Urine Bacteria (None) /hpf Urine Mucus (None) /hpf Coronavirus (PCR) Not Detected (Not Detectd) Influenza Type A RNA Not Detected (Not Detectd) Influenza Type B (PCR) Not Detected (Not Detectd) - Radiology Data Ventricular rate 106 bpm, CO interval 132 ms, QRS duration 82 ms, QTC 419 ms, PRT axes 40/-18/26. Sinus tachycardia, inferior infarct, age undetermined, abnormal ECG. EKG appears similar to previous studies. (Hilton Eisenberg) Disposition Is patient prescribed a controlled substance at d/c from ED?: No Time of Disposition: 22:21 <Hilton Eisenberg - Last Filed: 02/02/21 22:18> <Luisa Rutherford - Last Filed: 02/03/21 16:32> Clinical Impression: Fever, Urinary tract infection Disposition: HOME SELF-CARE Instructions (If sedation given, give patient instructions): Fever in Adults (ED) Additional Instructions: Please return to the Emergency Department if symptoms worsen or any other concerns. Take Tylenol 500 every 4 hours as needed for pain and fever control. Take antibiotics as prescribed until complete. Follow-up primary care in the next 1-2 days. Prescriptions: Cephalexin [Keflex] 500 mg PO Q8HR #21 cap Referrals: Tika Sheikh MD [Primary Care Provider] - 1-2 days
[2021-02-02 21:49] LABS: Amorphous Sediment,Urine Rare /hpf; Appearance,Urine Cloudy (Clear); Bacteria,Urine Occasional /hpf; Bilirubin,Urine Negative (Negative); Blood,Urine Moderate (Negative); Color,Urine Yellow; Glucose,Urine (UA) Negative (Negative); Ketones,Urine Negative (Negative); Leukocyte Esterase,Urine Large (Negative); Mucus,Urine Rare /hpf; Nitrite,Urine Positive (Negative); PH, Urine 5.5 (5.0-8.0); Protein,Urine 2+ (Negative); RBC,Urine 17 /hpf (0-5); Specific Gravity,Urine 1.012 (1.001-1.035); Squamous Epithelial Cell,Urine 1 /hpf (0-4); Urobilinogen,Urine <2.0 mg/dL (<2.0); WBC,Urine 54 /hpf (0-5)
[2021-02-02 22:02] VITALS: TEMP 100.6
[2021-02-02 22:06] LABS: Platelet Count 86 k/uL (150-450)
[2021-02-02 22:43] VITALS: BP 117/65; PULSE 80; RESP 16
== END 2021-02-02 22:43 | disposition home or self-care (01) ==
LOC: EC 20:22
DX: N39.0 Urinary tract infection, site not specified (principal); J39.2 Other diseases of pharynx; R05 Cough; B96.20 Unspecified Escherichia coli [E. coli] as the cause of diseases classified elsewhere; E11.9 Type 2 diabetes mellitus without complications; I10 Essential (primary) hypertension; E78.5 Hyperlipidemia, unspecified; I48.91 Unspecified atrial fibrillation; K21.9 Gastro-esophageal reflux disease without esophagitis; Z20.822 Contact with and (suspected) exposure to COVID-19; Z79.02 Long term (current) use of antithrombotics/antiplatelets; Z79.1 Long term (current) use of non-steroidal anti-inflammatories (NSAID); Z79.84 Long term (current) use of oral hypoglycemic drugs
CPT/HCPCS: 36415; 71046; 80053; 81001; 85025; 87077; 87086; 87186; 87502; 87635; 93005; 99285

== ENCOUNTER 2022-01-01 16:07 | Emergency (ER) | payer MEDICARE, OTHER ==
[2022-01-01 16:39] VITALS: BP 127/73; PULSE 97; RESP 16; TEMP 97.8
[2022-01-01 17:40] LABS: Basophils % (A) 1 %; Eosinophils # (A) 0.1 k/uL (0-0.7); Eosinophils % (A) 1 %; HCT 36.6 % (34.0-46.0); HGB 11.9 gm/dL (11.4-16.0); Lymphocytes # (A) 0.2 k/uL (1.0-4.8); Lymphocytes % (A) 4 %; MCH 31.8 pg (25.0-35.0); MCHC 32.6 g/dL (31.0-37.0); MCV 97.3 fL (80.0-100.0); Mean Platelet Volume 8.7; Monocytes # (A) 0.1 k/uL (0-1.0); Monocytes % (A) 2 %; Neutrophils # (A) 4.7 k/uL (1.3-7.7); Neutrophils % (A) 93 %; Platelet Count 132 k/uL (150-450); RBC 3.76 m/uL (3.80-5.40)
[2022-01-01 17:49] LABS: Albumin 4.3 g/dL (3.5-5.0); Calcium 8.5 mg/dL (8.4-10.2); Total Bilirubin 0.9 mg/dL (0.2-1.3); Total Protein 7.4 g/dL (6.3-8.2)
[2022-01-01 18:00] LABS: Appearance,Urine Cloudy (Clear); Bacteria,Urine Many /hpf; Bilirubin,Urine Negative (Negative); Blood,Urine Small (Negative); Color,Urine Yellow; Glucose,Urine (UA) Negative (Negative); Hyaline Casts,Urine 1 /lpf (0-2); Ketones,Urine Negative (Negative); Leukocyte Esterase,Urine Large (Negative); Mucus,Urine Rare /hpf; Nitrite,Urine Negative (Negative); Protein,Urine 1+ (Negative); RBC,Urine 5 /hpf (0-5); Specific Gravity,Urine 1.015 (1.001-1.035); Squamous Epithelial Cell,Urine 3 /hpf (0-4); Urobilinogen,Urine <2.0 mg/dL (<2.0); WBC,Urine 56 /hpf (0-5)
[2022-01-01] MEDS ORDERED: SULFAMETHOX-TMP 800-160MG 1 EACH TAB PO STA (18:39)
--- NOTE | 2022-01-01 18:46 | ED ---
General Adult HPI - General Chief complaint: Recheck/Abnormal Lab/Rx Stated complaint: Shakes Time Seen by Provider: 01/01/22 16:48 Source: patient Mode of arrival: wheelchair Limitations: no limitations - History of Present Illness Initial comments: Patient is a 76-year-old female presents to the emergency department for evaluation of shaking. Patient states she has had 3 episodes where her whole body was shaking for approximately one hour. The first episode happened last night. Patient had one episode this afternoon at 2 PM. She did not take her temperature at home. Patient states that other than the shaking she feels well. States that last time this happened she had a urinary tract infection. She denies burning with urination however this is not unusual for her with her urinary tract infection. Denies increased urinary frequency/urgency. Denies shortness of breath, chest pain, abdominal pain, side pain, and other concerns. Denies alcohol use. - Related Data Home Medications Medication Instructions Recorded Confirmed Lovastatin [Mevacor] 40 mg PO HS 02/19/17 09/09/21 Isosorbide Mononitrate ER [Imdur] 30 mg PO DAILY 03/26/17 09/09/21 Metoprolol Tartrate [Lopressor] 100 mg PO DAILY 09/09/21 09/09/21 amLODIPine [Norvasc] 5 mg PO DAILY 09/09/21 09/09/21 calcitrioL [Calcitriol] 0.25 mcg PO WEEKLY 09/09/21 09/09/21 lisinopriL [Zestril] 09/09/21 lisinopriL [Zestril] 20 mg pe PO DAILY 09/09/21 09/09/21 Previous Rx's Medication Instructions Recorded Sulfamethox-Tmp 800-160Mg [Bactrim 1 each PO Q12HR 5 Days #10 tab 01/01/22 Ds] Allergies Allergy/AdvReac Type Severity Reaction Status Date / Time hydrochlorothiazide Allergy Rash/Hives Verified 01/01/22 16:39 lidocaine Allergy Itching Verified 01/01/22 16:39 Review of Systems ROS Statement: Those systems with pertinent positive or pertinent negative responses have been documented in the HPI. ROS Other: All systems not noted in ROS Statement are negative. Past Medical History Past Medical History: Atrial Fibrillation, Diabetes Mellitus, GERD/Reflux, Hyperlipidemia, Hypertension, Musculoskeletal Disorder Additional Past Medical History / Comment(s): carpal tunnel, diverticulosis, chronic back pain, History of Any Multi-Drug Resistant Organisms: ESBL Date of last positivie culture/infection: 02/02/21 MDRO Source:: ESBL URINE Past Surgical History: Orthopedic Surgery Additional Past Surgical History / Comment(s): WALKER carpal tunnel surgery, WALKER shoulder replacements, L rotator cuff repair, colonoscopy 2006 with polyp removal Past Anesthesia/Blood Transfusion Reactions: No Reported Reaction Past Psychological History: No Psychological Hx Reported Smoking Status: Never smoker Past Alcohol Use History: None Reported Past Drug Use History: None Reported - Past Family History Mother Family Medical History: Cancer Additional Family Medical History / Comment(s): Cervical Brother(s) Family Medical History: Cancer Additional Family Medical History / Comment(s): Colon General Exam Limitations: no limitations General appearance: alert, in no apparent distress Head exam: Present: atraumatic, normocephalic, normal inspection Eye exam: Present: normal appearance, PERRL, EOMI. Absent: scleral icterus, co njunctival injection, periorbital swelling Respiratory exam: Present: normal lung sounds bilaterally. Absent: respiratory distress, wheezes, rales, rhonchi, stridor Cardiovascular Exam: Present: regular rate, normal rhythm, normal heart sounds. Absent: systolic murmur, diastolic murmur, rubs, gallop, clicks GI/Abdominal exam: Present: soft, normal bowel sounds. Absent: distended, tenderness, guarding, rebound, rigid Neurological exam: Present: alert, oriented X3, CN II-XII intact Psychiatric exam: Present: normal affect, normal mood Skin exam: Present: warm, dry, intact, normal color. Absent: rash Course Vital Signs 01/01/22 16:36 Temperature 97.8 F Pulse Rate 97 Respiratory 16 Rate Blood Pressure 127/73 O2 Sat by Pulse 95 Oximetry Medical Decision Making - Medical Decision Making This is a 76-year-old female who presents for evaluation of shaking episodes. Thorough history and examination were performed. Patient looks well. Afebrile. Vitals stable. She does not appear to be shaking during my evaluation. She does not have any hand tremors. Denies alcohol use. States this has occurred before and she was diagnosed with a urinary tract infection. Laboratory studies significant for hypogylcemia at 64. Patient is a type II diabetic on glimeperide. States she has been taking her blood pressure during these episodes which she states has been normal or mildly elevated. Patient was given apple juice in the emergency department. Urinalysis indicated of a decent infection. With normal vitals signs and no white count, patient can be discharged with antibiotics. I did review her last urine culture which shows susceptibility to Bactrim. She will be discharged with Bactrim. First dose was given in the emergency department. Patient to follow-up with her primary care provider. Return parameters discussed. She verbalizes understanding and is agreeable to this plan. Dr. Waldron is my attending. - Lab Data Result diagrams: 01/01/22 17:23 01/01/22 17:23 Lab Results 01/01/22 01/01/22 01/01/22 Range/Units 17:23 17:23 17:23 WBC 5.0 (3.8-10.6) k/uL RBC 3.76 L (3.80-5.40) m/uL Hgb 11.9 (11.4-16.0) gm/dL Hct 36.6 (34.0-46.0) % MCV 97.3 (80.0-100.0) fL MCH 31.8 (25.0-35.0) pg MCHC 32.6 (31.0-37.0) g/dL RDW 13.0 (11.5-15.5) % Plt Count 132 L (150-450) k/uL MPV 8.7 Neutrophils % 93 % Lymphocytes % 4 % Monocytes % 2 % Eosinophils % 1 % Basophils % 1 % Neutrophils # 4.7 (1.3-7.7) k/uL Lymphocytes # 0.2 L (1.0-4.8) k/uL Monocytes # 0.1 (0-1.0) k/uL Eosinophils # 0.1 (0-0.7) k/uL Basophils # 0.0 (0-0.2) k/uL Sodium 137 (137-145) mmol/L Potassium 4.0 (3.5-5.1) mmol/L Chloride 103 (98-107) mmol/L Carbon Dioxide 25 (22-30) mmol/L Anion Gap 9 mmol/L BUN 35 H (7-17) mg/dL Creatinine 1.95 H (0.52-1.04) mg/dL Est GFR (CKD-EPI)AfAm 28 (>60 ml/min/1.73 sqM) Est GFR (CKD-EPI)NonAf 24 (>60 ml/min/1.73 sqM) Glucose 65 L (74-99) mg/dL Calcium 8.5 (8.4-10.2) mg/dL Total Bilirubin 0.9 (0.2-1.3) mg/dL AST 47 H (14-36) U/L ALT 33 (4-34) U/L Alkaline Phosphatase 97 (38-126) U/L Total Protein 7.4 (6.3-8.2) g/dL Albumin 4.3 (3.5-5.0) g/dL Urine Color Yellow Urine Appearance Cloudy H (Clear) Urine pH 6.0 (5.0-8.0) Ur Specific [place] 1.015 (1.001-1.035) Urine Protein 1+ H (Negative) Urine Glucose (UA) Negative (Negative) Urine Ketones Negative (Negative) Urine Blood Small H (Negative) Urine Nitrite Negative (Negative) Urine Bilirubin Negative (Negative) Urine Urobilinogen <2.0 (<2.0) mg/dL Ur Leukocyte Esterase Large H (Negative) Urine RBC 5 (0-5) /hpf Urine WBC 56 H (0-5) /hpf Ur Squamous Epith Cells 3 (0-4) /hpf Urine Bacteria Many H (None) /hpf Hyaline Casts 1 (0-2) /lpf Urine Mucus Rare H (None) /hpf Disposition Clinical Impression: UTI (urinary tract infection), Hypoglycemia Disposition: HOME SELF-CARE Condition: Good Instructions (If sedation given, give patient instructions): Urinary Tract Infection in Older Adults (ED) Additional Instructions: Please take medication as directed. Follow-up with primary care provider in one to 2 days. Return to the emergency department if you experience new, concerning, or worsening symptoms. Prescriptions: Sulfamethox-Tmp 800-160Mg [Bactrim Ds] 1 each PO Q12HR 5 Days #10 tab Is patient prescribed a controlled substance at d/c from ED?: No Referrals: Sher Andrews [Primary Care Provider] - 1-2 days Time of Disposition: 18:46
== END 2022-01-01 19:26 | disposition home or self-care (01) ==
LOC: EC 16:07
DX: N39.0 Urinary tract infection, site not specified (principal); E78.5 Hyperlipidemia, unspecified; I10 Essential (primary) hypertension; E16.2 Hypoglycemia, unspecified; Z88.8 Allergy status to other drugs, medicaments and biological substances; Z88.4 Allergy status to anesthetic agent
CPT/HCPCS: 36415; 80053; 81001; 85025; 87077; 87086; 87186

== ENCOUNTER → 2022-05-09 | Outpatient (CLI) | payer MEDICARE, OTHER ==
--- NOTE | 2022-05-09 15:55 | US ---
EXAMINATION TYPE: US kidneys/renal and bladder DATE OF EXAM: 05/09/2022 COMPARISON: US CLINICAL HISTORY: N18.4 stage 4 ckd. CKD EXAM MEASUREMENTS: Right Kidney: 9.9 x 5.1 x 4.4 cm Left Kidney: 9.5 x 4.5 x 4.0 cm Right Kidney: Cortical thinning, no evidence of hydro, small cyst lower pole= 0.7 x 0.6 x 0.8 cm inc reased echotexture is noted. Left Kidney: Cortical thinning, no evidence of hydro, small cyst mid= 0.4 cm increased echotexture i s noted. Bladder: wnl Bilateral Jets seen: Only right jet visualized IMPRESSION: 1. Medical renal disease 2. No evidence of obstructive uropathy
== END | disposition home or self-care (01) ==
LOC: RADUSWWP 15:24
PROVIDERS: ATTEND Internal Medicine Nephrology
DX: N18.4 Chronic kidney disease, stage 4 (severe) (principal)
CPT/HCPCS: 76770

== ENCOUNTER → 2023-06-05 | Outpatient (CLI) | payer MEDICARE, OTHER ==
--- NOTE | 2023-06-05 14:45 | BD ---
EXAMINATION TYPE: Axial Bone Density DATE OF EXAM: 06/05/2023 CLINICAL HISTORY: 77 years old Female. ICD-10 CODE: Z78.0 ASYMPTOMATIC MENOPAUSAL STATE Height: 58 Weight: 159 FRAX RISK QUESTIONS: Family History (Parent hip fracture): no History of Fracture in Adulthood: no Secondary Osteoporosis: no Rheumatoid Arthritis: no RISK FACTORS HISTORY OF: Surgery to Hip(right): yes When: 2019 Family History of Osteoporosis: yes, sister Active: no Diet low in dairy products/other sources of calcium: no Postmenopausal woman: yes Lost more than 2 inches in height since high school: yes, was 60.5 Frequent falls: no Poor Health: no MEDICATIONS: Additional Medications: yes diabetic meds, hbp meds, cholesterol Additional History: kidney failure stage 4 EXAM MEASUREMENTS: Bone mineral densitometry was performed using the [employer] System. Bone mineral density as measured about the Lumbar spine is: ----- L1-L4(G/cm2): 1.523 T Score Values are as follows: ----- L1: 0.7 ----- L2: 2.7 ----- L3: 4.3 ----- L4: 3.6 ----- L1-L4: 2.9 Z Score Values are as follows: ----- L1: 2.2 ----- L2: 4.3 ----- L3: 5.8 ----- L4: 5.2 ----- L1-L4: 4.4 Bone mineral density has: Increased 3.5% since study of: 11.25.2018 Bone mineral density about the L hip (g/cm2): 0.767 T Score values are as follows: -----L Neck: -1.9 -----L Total: -0.3 Z Score values are as follows: -----L Neck: 0.0 -----L Total: 1.5 Bone mineral density has: Decreased 16.6% since study of: 11.25.2018 FRAX%s: The graph provided illustrates a 20.6% chance for a major osteoporotic fx and a 5.2% chance f or the hips probability for fx in 10 years time. IMPRESSION: Normal (Values between +1 and -1 indicate normal bone mass). Consider repeating this study in 5 year s or sooner if there is some new clinical indication. NOTE: T-SCORE=SD OF THE YOUNG ADULT MEAN.
== END | disposition home or self-care (01) ==
LOC: RADBDWWP 08:55
PROVIDERS: ATTEND Family Medicine
DX: M85.852 Other specified disorders of bone density and structure, left thigh (principal); Z78.0 Asymptomatic menopausal state
CPT/HCPCS: 77080

== ENCOUNTER → 2024-05-12 | Outpatient (CLI) | payer MEDICARE ==
--- NOTE | 2024-05-12 21:42 | US ---
EXAMINATION TYPE: US kidneys/renal and bladder DATE OF EXAM: 05/12/2024 COMPARISON: NONE CLINICAL INDICATION: Female, 78 years old with history of N18.4 CHRONIC KIDNEY DISEASE, STAGE 4 (SHERIE RE); TECHNIQUE: Grayscale imaging of the bilateral kidneys and urinary bladder: FINDINGS: EXAM MEASUREMENTS: Right Kidney: 9.6X4.5X4.8 cm Left Kidney: 8.4X3.9X3.9 cm Right Kidney: ANECHOIC AREA SEEN (INF): 0.8X0.9X1.0CM No hydronephrosis or masses seen Left Kidney: SMALL IN SIZE WHEN COMPARED TO PRIOR (05/09/2024) Bladder: wnl Bilateral Jets seen: Yes IMPRESSION: 1. Small right renal cortical cyst [facility], , 05/12/2024 9:40 PM
== END | disposition home or self-care (01) ==
LOC: RADUSWWP 09:57
PROVIDERS: ATTEND Internal Medicine
DX: N18.4 Chronic kidney disease, stage 4 (severe) (principal); N28.1 Cyst of kidney, acquired
CPT/HCPCS: 76770

== ENCOUNTER → 2024-10-18 | Outpatient (CLI) | payer MEDICARE ==
--- NOTE | 2024-10-18 10:03 | US ---
EXAMINATION TYPE: US kidneys/renal and bladder DATE OF EXAM: 10/18/2024 COMPARISON: Renal ultrasound 05/12/2024, 05/09/2022, 04/15/2019 CLINICAL INDICATION: Female, 79 years old with history of N18.4 CHRONIC KIDNEY DISEASE, STAGE 4 (SHERIE RE); CKD 4 TECHNIQUE: Grayscale imaging of the bilateral kidneys and urinary bladder: FINDINGS: EXAM MEASUREMENTS: Right Kidney: 8.2 x 4.3 x 3.6 cm Left Kidney: 8.6 x 4.4 x 2.3 cm Right Kidney: Anechoic area lower pole 1.1 x 1.2 x 1.2 cm. Left Kidney: No hydronephrosis or masses seen Bladder: Anechoic Bilateral Jets seen: yes There is no evidence for hydronephrosis at this point in time. No nephrolithiasis is seen. Right cris al lower pole simple cyst measuring up to 1.2 cm. No solid renal masses are identified. Loss of corti stacie medullary differentiation bilaterally. The urinary bladder is anechoic. IMPRESSION: 1. No hydronephrosis or nephrolithiasis. 2. Right renal simple cyst. 3. Findings of chronic medical renal disease. [facility], , 10/18/2024 10:01 AM
== END | disposition home or self-care (01) ==
LOC: RADUSWWP 09:10
PROVIDERS: ATTEND Internal Medicine
DX: N28.1 Cyst of kidney, acquired (principal); N18.4 Chronic kidney disease, stage 4 (severe)
CPT/HCPCS: 76770